=== PATIENT | female | born 1950 | race Caucasian/White ===

== ENCOUNTER → 2017-09-13 | Outpatient (CLI) | payer MEDICARE, OTHER ==
[~2017-09-13] MED LIST: HYDACE5 PO
== END | disposition home or self-care (01) ==
LOC: LAB SHORT 14:35 → LAB 14:35
DX: R30.0 Dysuria (principal)
CPT/HCPCS: 87086

== ENCOUNTER → 2018-09-28 | Outpatient (CLI) | payer MEDICARE, OTHER ==
[2018-09-28 14:32] LABS: Source, Urine Clean Catch
[2018-09-28 17:01] LABS: Bilirubin, Urine Neg (Neg); Blood, Urine Neg (Neg); Glucose Qualitative, Urine Neg (Neg); Ketones, Urine Neg (Neg); Leukocyte Esterase, Urine 2+ (Neg); Nitrite, Urine Neg (Neg); Protein, Urine Neg (Neg); Specific Gravity, Urine 1.015 (1.003-1.022); Urobilinogen, Urine NORM (Normal)
[2018-09-28 17:13] LABS: Appearance, Urine Clear (Clear); Color, Urine Yellow (P-Yellow)
[2018-09-28 17:15] LABS: Red Blood Cells, Urine 0-2 /hpf (0-2)
[2018-09-28 17:16] LABS: Bacteria Few /hpf; Squamous Epithelial Cells Few /hpf (Few); Yeast/Fungi Urine Rare /hpf
== END | disposition home or self-care (01) ==
LOC: LAB SHORT 14:23 → LAB 14:23
PROVIDERS: Family Medicine
DX: R30.0 Dysuria (principal)
CPT/HCPCS: 81001; 87086

== ENCOUNTER 2021-11-13 09:25 | Observation (INO) | payer MEDICARE, OTHER ==
[~2021-11-13] VITALS: Ht 149.9 cm; Wt 51.7 kg
[~2021-11-13 09:25] MED LIST changes: +ALBU90OI INH; +AMLO5 PO; +ATOR10 PO; +AZIT250 PO; +DEXL60CA3; +DOXA4 PO; +DULO30 PO; +EUTHYROX175 MCG PO; +FLUT.05NI; +FLUT1DIS8 INH; +HYDCHL25 PO; +MONT10T PO; +PRED20 PO; +SERT100 PO; +TIOT18 INH
[2021-11-13 14:22] LABS: Source, Urine Foley catheter
[2021-11-13 14:29] LABS: Appearance, Urine Clear (Clear); Bilirubin, Urine Neg (Neg); Blood, Urine Neg (Neg); Glucose Qualitative, Urine Neg (Neg); Ketones, Urine Neg (Neg); Leukocyte Esterase, Urine Neg (Neg); Nitrite, Urine Neg (Neg); Protein, Urine Neg (Neg); Specific Gravity, Urine 1.015 (1.003-1.022); Urobilinogen, Urine NORM (Normal)
[2021-11-13 14:38] LABS: Color, Urine Pale Yellow (P-Yellow)
--- NOTE | 2021-11-13 23:21 | NUR ---
Patient admitted for pelvic fx, very painful with movement. SOB with movement, patient on 5L oxygen to maintain saturations. Patient reports drinking 4oz of tequila daily, reports patient consumes an excessive amount of tequila daily & smokes half a pack of cigarettes. Patient reports her last drink was last night, when she fell. CIWA ordered, patient scoring 2-3. Patient painful with movement, arguello in place, draining to gravity. Bilat pedal pulses palpable, extremties warm, capillary refill <3.
[2021-11-14 09:36] LABS: BASOPHILS ABSOLUTE AUTO 0.06 K/mm3 (0.00-0.23); BASOPHILS PERCENT AUTO 0 % (0-2); EOSINOPHILS ABSOLUTE AUTO 0.05 K/mm3 (0.00-0.68); EOSINOPHILS PERCENT AUTO 0 % (0-6); Hematocrit 38.6 % (33.0-51.0); Hemoglobin 12.1 g/dL (11.5-16.0); IMMATURE GRAN ABSOLUTE AUTO 0.06 K/mm3 (0.00-0.10); IMMATURE GRAN PERCENT AUTO 0 % (0-1); LYMPHOCYTES ABSOLUTE AUTO 0.56 K/mm3 (0.84-5.20); LYMPHOCYTES PERCENT AUTO 4 % (21-46); MONOCYTES PERCENT AUTO 12 % (4-13); Mean Corpuscular HGB 31.3 pg (26.0-34.0); Mean Corpuscular HGB Conc 31.3 g/dL (31.5-36.5); Mean Corpuscular Volume 100 fL (80-100); Mean Platelet Volume 9.7 fL (9.1-12.4); NEUTROPHILS ABSOLUTE AUTO 11.73 K/mm3 (1.96-9.15); NEUTROPHILS PERCENT AUTO 83 % (41-73); Platelet Count 232 K/mm3 (150-400); RDW Coefficient Variation 13.2 % (11.7-14.2); RDW Standard Deviation 49.2 fL (35.1-46.3); Red Blood Cell Count 3.86 M/mm3 (3.80-5.20); White Blood Cell Count 14.16 K/mm3 (4.00-11.30)
[2021-11-14 09:48] LABS: Albumin, Blood 3.1 g/dL (3.4-5.0); Albumin/Globulin Ratio 0.8 (0.8-1.8); Bilirubin, Total 0.6 mg/dL (0.1-1.0); Bun/Creatinine Ratio 16.8 (12.0-20.0); Calcium, Blood 9.2 mg/dL (8.5-10.1); Creatinine, Blood 0.6 mg/dL (0.40-1.00); Globulin, Blood 4.1 g/dL (2.2-4.0); Potassium, Blood 3.6 mmol/L (3.5-5.5); Total Protein, Blood 7.2 g/dL (6.4-8.2)
--- NOTE | 2021-11-14 11:48 | NUR ---
MS LUNA IS ALERT, ORIENTATED X4. PAIN TO LEFT PELVIS 1/10 AT REST. CASE DISCUSSED WITH DR VÁZQUEZ THIS MORNING - PT IS NPO WITH MINIMAL FLUIDS PO LAST EVENING AFTER BEING NPO IN THE ER YESTERDAY. NOT ON IVF. I WAS TOLD ORTHO HAD BEEN CONSULTED, BUT HAVEN'T HEARD FROM ORTHO PHYSICIAN SO A CALL WAS PUT IN TO THE ANSWERING SERVICE AT 1145. PT C/O FEELING CONGESTED, SAID SHE TAKES ALBUTEROL NEBS AT HOME WHEN THIS HAPPENS, DR HICKEY NOTIFIED. DR HICKEY HAS A LIST OF PT MEDICATIONS THAT SHE'S ON AT HOME. ENHANCED ISOLATION PRECAUTIONS WERE IN PT'S CHART, QUESTIONED DR HICKEY AND GOT THE OK TO REMOVED THE ENHANCED ISOLATION STATUS. PT SAID SHE HAS NOT HAD RECENT COVID. CIWA SCORE AT 8AM WAS 1. SEIZURE PADS ON THE BED. AT BEDSIDE. BED LOW, CALL LIGHT IN REACH. PT TURNED SLIGHTLY OFF OF HER LEFT SIDE TO RELIEVE PRESSURE, PROPPED WITH PILLOWS.
[2021-11-14] MEDS ORDERED: AMLO10 PO (14:14)
[2021-11-14] MEDS ORDERED: ASCO500 PO ×2 (14:15→14:16)
[2021-11-14] MEDS ORDERED: ATOR10 PO (14:17)
[2021-11-14] MEDS ORDERED: Vitamin B-12 PO (14:19)
[2021-11-14] MEDS ORDERED: CYMBALTA30 M1 PO (14:20)
[2021-11-14] MEDS ORDERED: Flonase 0.05% Nasal (14:22)
[2021-11-14] MEDS ORDERED: FLUT1DIS8 INH (14:23)
[2021-11-14] MEDS ORDERED: HYDCHL50 PO (14:24)
[2021-11-14] MEDS ORDERED: LEVO T PO (14:26)
[2021-11-14] MEDS ORDERED: MONT10T PO (14:27)
[2021-11-14] MEDS ORDERED: SERT100 PO (14:28)
[2021-11-14] MEDS ORDERED: TIOT18 INH (14:29)
--- NOTE | 2021-11-14 16:09 | NUR ---
SHIFT SUMMARY ORTHO DR VICENTE CAME TO ASSESS PT. HE GAVE HER A PRESCRIPTION FOR WHEELCHAIR FOR HOME. SAID SHE CAN BE WEIGHT BEARING TOLERATED. PHYSICAL THERAPY CONSULT REQUESTED. CAN EAT AND DRINK. I CALLED DR HICKEY AND SHE SAID PT CAN HAVE A CARDIAC DIET. ORDER ENTERED FOR TRAY NOW. SNACK AND DRINK GIVEN TO PT. DR VICENTE SAID PT NEEDS TO F/U WITH ORTHO IN 6 WEEKS AN OUT PATIENT. GIVEN MORPHINE 2MG FOR 10/10 PAIN, REDUCED TO 5/10. MOIST NON-PRODUCTIVE COUGH ON 5L NC, FEELS CONGESTED. ON CONTINUOUS PULSE OX. FAMILY AT BEDSIDE. BED LOW, CALL LIGHT IN REACH.
--- NOTE | 2021-11-15 06:40 | NUR ---
SHIFT SUMMARY: PATIENT REPORTS DISCOMFORT WITH REPOSITIONING. REFUSES NEED OF PAIN MEDICATION. VSS, HORVATH PATENT FOR A CLEAR YELLOW URINE. PATIENT SLEPT WELL THROUGH THE SHIFT WITH CPAP ON. SCORES A ZERO ON WITHDRAWL ASSESSMENT.
--- NOTE | 2021-11-15 11:11 | NUR ---
AM NOTE MS LUNA STOOD WITH PT AND TRANSFERED TO THE RECLINER, HAS BEEN SITTING OUT THIS MORNING. SHE WAS PRE-MEDICATED WITH 1MG MORPHINE PRIOR TO PT. DR GARDUNO CAME THIS MORNING AND SAID HE WILL PLACE ORAL ANALGESIA ORDER. HE PAIN IS WELL CONTROLLED AT REST, PAINFUL TO MOVE. HORVATH CATHETER REMOVED AT 1100HRS. CIWA 0 THIS AM. FAMILY AT BEDSIDE.
--- NOTE | 2021-11-15 16:30 | NUR ---
SHIFT SUMMARY MS ULNA SAT UP IN THE CHAIR FOR A FEW HOURS TODAY, TRANSFERED BACK TO BED WITH GAIT BELT, WALKER AND ONE PERSON ASSIST. MOIST STRONG NON-PRODUCTIVE COUGH ON 5-6L NC AND CONT PULSE OX. NOT SOB TRANSFERING TO BED. HORVATH REMOVED AT 1100HRS. ENCOURAGED TO DRINK FLUIDS. SHE HAS VOIDED JUST 100CC SINCE HORVATH REMOVAL. FAMILY TO BEDSIDE. PLAN FOR SNF PLACEMENT AND PT/FAMILY REQUESTING [facility]. PAIN CONTROLLED, THIS AFTERNOON SHE HAS TAKEN NORCO WHICH BROUGHT PAIN TO 3/10. BED LOW, CALL LIGHT IN REACH.
[2021-11-15] MEDS ORDERED: Oxybutynin Chlo15 MG PO (21:21)
--- NOTE | 2021-11-15 22:07 | NUR ---
2054 PT LYING IN BED, REPORTS PAIN IN GLUTEAL AREA, GOT NORCO, WILL EVAL FOR EFFECT. REPORTS SOB THAT INCREASES WITH EXERTION, ON 6L O2 NC AT 97%. NON PRODUCTIVE COUGH. NO OTHER APPARENT SIGNS OF DISTRESS. CALL LIGHT IS IN REACH.
--- NOTE | 2021-11-15 23:40 | NUR ---
PT LYING IN BED, EYES CLOSED, APPEARS TO BE RESTING. BREATHING IS EVEN, UNLABORED. CPAP AND CONT BIOX ON. NO APPARENT SIGNS OF DISTRESS. CALL LIGHT IS IN REACH.
--- NOTE | 2021-11-16 02:45 | NUR ---
PT LYING IN BED, AWAKE, ROOFER HELPER JUST FINISHED VS. PT DENIES NEED FOR ANYTHING AT THIS TIME. NO APPARENT SIGNS OF DISTRESS. CPAP IS ON. CALL LIGHT IS IN REACH.
--- NOTE | 2021-11-16 03:48 | NUR ---
PT LYING IN BED, EYES CLOSED, APPEARS TO BE RESTING. BREATHING IS EVEN, UNLABORED. NO APPARENT SIGNS OF DISTRESS. CPAP IS ON. CALL LIGHT IS IN REACH.
--- NOTE | 2021-11-16 03:48 | NUR ---
PT IS AAO X 4, REPORTS SOB THAT INCREASES WITH EXERTION. ON 6L O2 NC AT 97%. HAS A NON PRODUCTIVE COUGH. REPORTS PAIN IN BOTTOM, GOT NORCO.
[2021-11-16 05:54] LABS: BASOPHILS ABSOLUTE AUTO 0.04 K/mm3 (0.00-0.23); BASOPHILS PERCENT AUTO 0 % (0-2); EOSINOPHILS ABSOLUTE AUTO 0.16 K/mm3 (0.00-0.68); EOSINOPHILS PERCENT AUTO 2 % (0-6); Hematocrit 37.5 % (33.0-51.0); Hemoglobin 11.9 g/dL (11.5-16.0); IMMATURE GRAN ABSOLUTE AUTO 0.04 K/mm3 (0.00-0.10); IMMATURE GRAN PERCENT AUTO 0 % (0-1); LYMPHOCYTES ABSOLUTE AUTO 0.76 K/mm3 (0.84-5.20); LYMPHOCYTES PERCENT AUTO 7 % (21-46); MONOCYTES ABSOLUTE AUTO 1.66 K/mm3 (0.16-1.47); MONOCYTES PERCENT AUTO 16 % (4-13); Mean Corpuscular HGB 31.2 pg (26.0-34.0); Mean Corpuscular HGB Conc 31.7 g/dL (31.5-36.5); Mean Corpuscular Volume 98 fL (80-100); Mean Platelet Volume 10.3 fL (9.1-12.4); NEUTROPHILS ABSOLUTE AUTO 7.96 K/mm3 (1.96-9.15); NEUTROPHILS PERCENT AUTO 75 % (41-73); Platelet Count 263 K/mm3 (150-400); RDW Coefficient Variation 12.8 % (11.7-14.2); RDW Standard Deviation 46.3 fL (35.1-46.3); Red Blood Cell Count 3.81 M/mm3 (3.80-5.20); White Blood Cell Count 10.62 K/mm3 (4.00-11.30)
--- NOTE | 2021-11-16 06:11 | NUR ---
PT REQUESTED AND RECIEVED PAIN MEDS, WILL EVAL FOR EFFECT. PUREWICK PLACED FOR PT COMFORT R/T PELVIC FX'S. NO OTHER APPARENT SIGNS OF DISTRESS. CALL LIGHT IS IN REACH. NO OTHER CHANGES THIS SHIFT.
[2021-11-16 06:17] LABS: Bun/Creatinine Ratio 26.1 (12.0-20.0); Calcium, Blood 9.5 mg/dL (8.5-10.1); Creatinine, Blood 0.5 mg/dL (0.40-1.00); Potassium, Blood 3.3 mmol/L (3.5-5.5)
--- NOTE | 2021-11-16 18:41 | NUR ---
SHIFT SUMMARY- PT ALERT AND ORIENTED X3. SHE HAS HAD NO SIGNS OF ALCOHOL WITHDRAWL T/O THE SHIFT TODAY. SHE HAS BEEN PLEASENT AND REQUESTED ASSISTANCE WHEN SHE NEEDED IT. PT WAS ABLE TO WORK WITH THERAPY TODAY. PT HAD A PURWICK PLACED THIS MORNING, THAT BECAME DISLODGED, ATTEND AND LINNENS CHANGED. STAFF ATTEMPTED TO GET PT INTO THE SHOWER BUT VISITOR ARRIVED THE PT WAS HEADED FOR THE BATHROOM. WILL PASS ON TO NIGHT RN THAT THE PT STILL NEEDS A SHOWER. PT CURRENTLY SITTING IN A CHAIR WORKING ON THE LAST OF HER DINNER TRAY. CALL LIGHT IN REACH NO S&S OF DISTRESS NOTED. WILL CTM AND PASS ON IN BEDSIDE REPORT TO NIGHT RN.
--- NOTE | 2021-11-16 19:30 | NUR ---
RECEIVED BEDSIDE REPORT FROM DAYSAGGIE RN. A/O. PLEASANT AND COOPERATIVE. WILL CONTINUE TO PROVIDE CARE T/O SHIFT. CALL LT IN REACH.
--- NOTE | 2021-11-16 20:00 | NUR ---
PRN PAIN MED GIVEN FOR L HIP PAIN. PT CURRENTLY ON 6L VIA NC. WILL WEAR HOME CPAP AT BEDTIME. CONT BIOX AND TELE IN PLACE. WEIGHT BEARING TO LEFT LEG TOLERATED. MEDS WHOLE WITH WATER. NO OTHER NEEDS. CALL LT IN REACH.
--- NOTE | 2021-11-16 22:14 | NUR ---
NOTIFIED RT PT'S SATS PER CONT BIOX WAS 88% ON TRILOGY WITH A 5L BLEED IN. OKAY TO TITRATE TO 6L BLEED IN PER RT. WILL CONTINUE TO PROVIDE CARE.
--- NOTE | 2021-11-17 00:16 | NUR ---
PT RESTING QUIETLY. 93% ON TRILOGY WITH 6L BLEED IN.
--- NOTE | 2021-11-17 02:00 | NUR ---
PT RESTING QUIETLY. CPAP IN PLACE. 91% SATS. CALL LT IN REACH.
--- NOTE | 2021-11-17 03:39 | NUR ---
SHIFT SUMMARY: ON 6L VIA NC WHILE AWAKE. ENDED WITH A 6L BLEED IN TO CPAP WITH SATS OF 93%. BLLED IN TITRATED FROM 4 TO 6L AT END OF SHIFT. PER RT RECOMMENDATION OKAY TO TITRATE OXYGEN IN CPAP TO 6L TO KEEP SATS IN THE LOW 90'S. MEDICATE ONCE FOR LEFT HIP PAIN, PT RESTED WELL. WEIGHT BEARING TO LEFT LEG TOLERATED. WILL CONTINUE TO PROVIDE CARE UNTIL SHIFT REPORT.
--- NOTE | 2021-11-17 04:32 | NUR ---
PT CONTINUES TO REST QUIETLY. CPAP IN PLACE. CONT BIOX 93%. CALL LT IN REACH.
[2021-11-17 05:45] LABS: Bun/Creatinine Ratio 21.8 (12.0-20.0); Calcium, Blood 9.5 mg/dL (8.5-10.1); Creatinine, Blood 0.46 mg/dL (0.40-1.00); Potassium, Blood 3.7 mmol/L (3.5-5.5)
--- NOTE | 2021-11-17 05:58 | NUR ---
AM MED GIVEN. PT CONTINUES TO WEAR CPAP. NO OTHER NEEDS. CALL LT IN REACH.
[2021-11-17] MEDS ORDERED: Norco 5-325 Ta1 EACH PO (11:13)
[2021-11-17] MEDS ORDERED: MULVITA PO (11:13)
[2021-11-17] MEDS ORDERED: B-1100 M1 PO (11:13)
[2021-11-17] MEDS ORDERED: ACET325 PO (11:14)
[2021-11-17 11:30] LABS: Influenza A, PCR NEGATIVE (NEGATIVE); Influenza B, PCR NEGATIVE (NEGATIVE); Resp Syncytial Virus, PCR NEGATIVE (NEGATIVE); SARS-Cov-2 (COVID-19) PCR, MMC NEGATIVE (NEGATIVE)
--- NOTE | 2021-11-17 13:12 | NUR ---
DISCHARGE SUMMARY PATIENT IS ALERT AND ORIENTED. PATIENT IS BEING [facility] TO [facility]. PATIENT HAS BEEN TRANSPORTED BY [facility]. PATIENT HAS NOT HAD ANY ACUTE EVENTS THIS SHIFT. VITAL SIGNS REVIEWED. THIS RN CALLED AND GAVE REPORT TO ONCOMING RN AT [facility].
== END 2021-11-17 13:03 ==
LOC: ER 09:25 → MEDS 16:17 → ER 16:17 → MEDS 16:17
PROVIDERS: Family Medicine; ADMIT Internal Medicine
DX: S32.512A Fracture of superior rim of left pubis, initial encounter for closed fracture (principal); S32.592A Other specified fracture of left pubis, initial encounter for closed fracture; W19.XXXA Unspecified fall, initial encounter; E87.6 Hypokalemia; F10.10 Alcohol abuse, uncomplicated; J96.11 Chronic respiratory failure with hypoxia; G47.33 Obstructive sleep apnea (adult) (pediatric); I10 Essential (primary) hypertension; J43.9 Emphysema, unspecified; E03.9 Hypothyroidism, unspecified; Z88.2 Allergy status to sulfonamides; Z88.8 Allergy status to other drugs, medicaments and biological substances; Z79.899 Other long term (current) drug therapy; Z20.822 Contact with and (suspected) exposure to COVID-19
CPT/HCPCS: 0241U; 36415; 51702; 73502; 73700; 80048; 80053; 81003; 85025; 94640; 94660; 94664; 94762; 96372; 96374-59; 97110; 97116-CQ; 97161; 97530-CQ; 99285-25; A9270; G0378; J1650; J2270; J2405; J3411; J7050

== ENCOUNTER 2022-05-14 10:53 | Inpatient (IN) | payer MEDICARE, OTHER ==
[~2022-05-14] VITALS: Ht 144.8 cm; Wt 52.3 kg
[~2022-05-14 10:53] MED LIST changes: +ACET325 PO; +AMLO10 PO; +ASCO500 PO; +B-1100 M1 PO; +CYMBALTA30 M1 PO; +Flonase 0.05% Nasal; +HYDCHL50 PO; +LEVO T PO; +MULVITA PO; +Norco 5-325 Ta1 EACH PO; +Oxybutynin Chlo15 MG PO; +Vitamin B-12 PO
[2022-05-14 11:28] LABS: BASOPHILS ABSOLUTE AUTO 0.04 K/mm3 (0.00-0.23); BASOPHILS PERCENT AUTO 0 % (0-2); EOSINOPHILS ABSOLUTE AUTO 0.04 K/mm3 (0.00-0.68); EOSINOPHILS PERCENT AUTO 0 % (0-6); Hematocrit 35.1 % (33.0-51.0); Hemoglobin 11.4 g/dL (11.5-16.0); IMMATURE GRAN ABSOLUTE AUTO 0.06 K/mm3 (0.00-0.10); IMMATURE GRAN PERCENT AUTO 0 % (0-1); LYMPHOCYTES ABSOLUTE AUTO 0.45 K/mm3 (0.84-5.20); LYMPHOCYTES PERCENT AUTO 3 % (21-46); MONOCYTES ABSOLUTE AUTO 0.68 K/mm3 (0.16-1.47); MONOCYTES PERCENT AUTO 5 % (4-13); Mean Corpuscular HGB 30.7 pg (26.0-34.0); Mean Corpuscular HGB Conc 32.5 g/dL (31.5-36.5); Mean Corpuscular Volume 95 fL (80-100); Mean Platelet Volume 9.2 fL (9.1-12.4); NEUTROPHILS ABSOLUTE AUTO 12.69 K/mm3 (1.96-9.15); NEUTROPHILS PERCENT AUTO 91 % (41-73); Platelet Count 311 K/mm3 (150-400); RDW Coefficient Variation 13.2 % (11.7-14.2); RDW Standard Deviation 45.8 fL (35.1-46.3); Red Blood Cell Count 3.71 M/mm3 (3.80-5.20); White Blood Cell Count 13.96 K/mm3 (4.00-11.30)
[2022-05-14 11:44] LABS: Albumin/Globulin Ratio 0.7 (0.8-1.8); Bilirubin, Total 0.6 mg/dL (0.1-1.0); Bun/Creatinine Ratio 15.9 (12.0-20.0); Calcium, Blood 9.2 mg/dL (8.5-10.1); Creatinine, Blood 0.44 mg/dL (0.40-1.00); Globulin, Blood 4.5 g/dL (2.2-4.0); Potassium, Blood 4.5 mmol/L (3.5-5.5); Total Protein, Blood 7.5 g/dL (6.4-8.2)
[2022-05-14 13:09] LABS: Influenza A, PCR NEGATIVE (NEGATIVE); Influenza B, PCR NEGATIVE (NEGATIVE); Resp Syncytial Virus, PCR NEGATIVE (NEGATIVE); SARS-Cov-2 (COVID-19) PCR, MMC NEGATIVE (NEGATIVE)
[2022-05-14 14:35] LABS: Base Excess Venous 4.9 mmol/L; Bicarbonate Venous 27.8 mmol/L (24.0-30.0); pH Blood Venous 7.35 (7.34-7.37)
--- NOTE | 2022-05-14 19:10 | NUR ---
PT ALERT NO S/S OF ACUTE DISTRESS, SAFETY MEASURES IN PLACE REPORT GIVEN TO ON COMING NURSE.
[2022-05-15 05:28] LABS: BASOPHILS ABSOLUTE AUTO 0.01 K/mm3 (0.00-0.23); BASOPHILS PERCENT AUTO 0 % (0-2); EOSINOPHILS PERCENT AUTO 0 % (0-6); Hematocrit 34.4 % (33.0-51.0); Hemoglobin 11.3 g/dL (11.5-16.0); IMMATURE GRAN ABSOLUTE AUTO 0.08 K/mm3 (0.00-0.10); IMMATURE GRAN PERCENT AUTO 1 % (0-1); LYMPHOCYTES ABSOLUTE AUTO 0.52 K/mm3 (0.84-5.20); LYMPHOCYTES PERCENT AUTO 6 % (21-46); MONOCYTES ABSOLUTE AUTO 0.43 K/mm3 (0.16-1.47); MONOCYTES PERCENT AUTO 5 % (4-13); Mean Corpuscular HGB 30.5 pg (26.0-34.0); Mean Corpuscular HGB Conc 32.8 g/dL (31.5-36.5); Mean Corpuscular Volume 93 fL (80-100); Mean Platelet Volume 9.6 fL (9.1-12.4); NEUTROPHILS ABSOLUTE AUTO 8.26 K/mm3 (1.96-9.15); NEUTROPHILS PERCENT AUTO 89 % (41-73); Platelet Count 347 K/mm3 (150-400); RDW Coefficient Variation 12.8 % (11.7-14.2); RDW Standard Deviation 43.7 fL (35.1-46.3)
--- NOTE | 2022-05-15 06:04 | NUR ---
PT IS A&O4, UP SB TO BR, 5L NC AT BASELINE, CPAP AT NIGHT, NO COMPLAINTS OF PAIN OR DISCOMFORT OR ACUTE OVERNIGHT EVENTS CONTINUE POC
[2022-05-15 06:06] LABS: Bun/Creatinine Ratio 29.2 (12.0-20.0); Calcium, Blood 9.4 mg/dL (8.5-10.1); Creatinine, Blood 0.65 mg/dL (0.40-1.00); Potassium, Blood 4.2 mmol/L (3.5-5.5)
--- NOTE | 2022-05-15 19:09 | NUR ---
PT ALERT NO S/S OF ACUTE DISTRESS, SAFETY MEASURES IN PLACE. REPORT GIVEN TO ON COMING NURSE.
[2022-05-16 05:44] LABS: Bun/Creatinine Ratio 41.9 (12.0-20.0); Calcium, Blood 9.9 mg/dL (8.5-10.1); Creatinine, Blood 0.53 mg/dL (0.40-1.00); Potassium, Blood 4.2 mmol/L (3.5-5.5); Thyroxine (T4) 8.1 ug/dL (4.8-13.9)
[2022-05-17 06:12] LABS: Bun/Creatinine Ratio 34.3 (12.0-20.0); Calcium, Blood 9.6 mg/dL (8.5-10.1); Creatinine, Blood 0.61 mg/dL (0.40-1.00); Potassium, Blood 4.2 mmol/L (3.5-5.5)
--- NOTE | 2022-05-17 06:35 | NUR ---
PT IS A&O4, SB WITH WALKER TO THE BR, 5L NC AT BASELINE, USES CPAP AT NIGHT, VSS, NO COMPLAINTS OF PAIN OR DISCOMFORT THIS SHIFT OR ACUTE OVERNIGHT EVENTS CONTINUE POC
[2022-05-18] MEDS ORDERED: OMEP20ER PO (19:53)
[2022-05-19 06:22] LABS: BASOPHILS ABSOLUTE AUTO 0.02 K/mm3 (0.00-0.23); BASOPHILS PERCENT AUTO 0 % (0-2); EOSINOPHILS ABSOLUTE AUTO 0.13 K/mm3 (0.00-0.68); EOSINOPHILS PERCENT AUTO 1 % (0-6); Hematocrit 35.5 % (33.0-51.0); Hemoglobin 11.4 g/dL (11.5-16.0); IMMATURE GRAN ABSOLUTE AUTO 0.15 K/mm3 (0.00-0.10); IMMATURE GRAN PERCENT AUTO 1 % (0-1); LYMPHOCYTES ABSOLUTE AUTO 1.79 K/mm3 (0.84-5.20); LYMPHOCYTES PERCENT AUTO 12 % (21-46); MONOCYTES ABSOLUTE AUTO 1.61 K/mm3 (0.16-1.47); MONOCYTES PERCENT AUTO 11 % (4-13); Mean Corpuscular HGB 30.6 pg (26.0-34.0); Mean Corpuscular HGB Conc 32.1 g/dL (31.5-36.5); Mean Corpuscular Volume 95 fL (80-100); Mean Platelet Volume 9.2 fL (9.1-12.4); NEUTROPHILS ABSOLUTE AUTO 10.82 K/mm3 (1.96-9.15); NEUTROPHILS PERCENT AUTO 75 % (41-73); Platelet Count 482 K/mm3 (150-400); RDW Coefficient Variation 13.3 % (11.7-14.2); RDW Standard Deviation 46.5 fL (35.1-46.3); Red Blood Cell Count 3.73 M/mm3 (3.80-5.20); White Blood Cell Count 14.52 K/mm3 (4.00-11.30)
--- NOTE | 2022-05-19 06:26 | NUR ---
PT IS A&O4, SB WITH WALKER TO THE BR, 5LNC AT BASELINE, CPAP AT NIGHT, VSS, NO COMPLAINTS OF PAIN OR DISCOMFORT THIS SHIFT, CONTINUE POC
[2022-05-19 06:42] LABS: Bun/Creatinine Ratio 30.9 (12.0-20.0); Calcium, Blood 9.6 mg/dL (8.5-10.1); Creatinine, Blood 0.65 mg/dL (0.40-1.00)
[2022-05-19] MEDS ORDERED: DILT120 PO (11:32)
[2022-05-19] MEDS ORDERED: FURO40 PO (11:33)
[2022-05-19] MEDS ORDERED: PRED20 PO (11:34)
[2022-05-19] MEDS ORDERED: POTA10T PO (11:40)
== END 2022-05-19 12:30 | disposition home health service (06) | DRG 291 ==
LOC: ER 10:53 → MEDS 13:35
PROVIDERS: Emergency Medicine; Internal Medicine; ADMIT Family Medicine
PROC: 5A09357 Assistance with Respiratory Ventilation, Less than 24 Consecutive Hours, Continuous Positive Airway Pressure (ICD-10-PCS; principal; 2022-05-14)
DX: I11.0 Hypertensive heart disease with heart failure (principal); J96.21 Acute and chronic respiratory failure with hypoxia; J96.22 Acute and chronic respiratory failure with hypercapnia; E87.1 Hypo-osmolality and hyponatremia; F10.20 Alcohol dependence, uncomplicated; I50.9 Heart failure, unspecified; G47.33 Obstructive sleep apnea (adult) (pediatric); D64.9 Anemia, unspecified; D72.829 Elevated white blood cell count, unspecified; J43.9 Emphysema, unspecified; I27.20 Pulmonary hypertension, unspecified; E03.9 Hypothyroidism, unspecified; Z20.822 Contact with and (suspected) exposure to COVID-19; Z88.1 Allergy status to other antibiotic agents; Z88.2 Allergy status to sulfonamides; Z99.81 Dependence on supplemental oxygen; Z88.8 Allergy status to other drugs, medicaments and biological substances; Z87.891 Personal history of nicotine dependence; Z79.899 Other long term (current) drug therapy; Z79.52 Long term (current) use of systemic steroids; Z79.51 Long term (current) use of inhaled steroids; Z79.02 Long term (current) use of antithrombotics/antiplatelets; Z79.891 Long term (current) use of opiate analgesic; Z71.41 Alcohol abuse counseling and surveillance of alcoholic; Z98.890 Other specified postprocedural states
CPT/HCPCS: 0241U; 36415; 71045; 80048; 80053; 82803; 83880; 84436; 84484; 85025; 93005; 93010; 93306; 94640; 94644; 94660; 94664; 94760; 94761; 94762; 96374; 96375; 97110; 97112-CQ; 97161; 99285-25; A9270; J1650; J1940; J2930; J7512

== ENCOUNTER 2022-06-08 15:33 | Emergency (ER) | payer MEDICARE, OTHER ==
[~2022-06-08] VITALS: Ht 144.8 cm; Wt 51.3 kg
[~2022-06-08 15:33] MED LIST changes: +DILT120 PO; +FURO40 PO; +OMEP20ER PO; +POTA10T PO
[2022-06-08] MEDS ORDERED: CLOBETASOL EMOL15 G1 EXT (17:23)
== END 2022-06-08 17:34 | disposition home or self-care (01) ==
LOC: ER 15:33
DX: L27.0 Generalized skin eruption due to drugs and medicaments taken internally (principal); T46.1X5A Adverse effect of calcium-channel blockers, initial encounter; T44.3X5A Adverse effect of other parasympatholytics [anticholinergics and antimuscarinics] and spasmolytics, initial encounter; I10 Essential (primary) hypertension; E03.9 Hypothyroidism, unspecified; J44.9 Chronic obstructive pulmonary disease, unspecified; F17.210 Nicotine dependence, cigarettes, uncomplicated; Z88.1 Allergy status to other antibiotic agents; Z88.2 Allergy status to sulfonamides; Z88.8 Allergy status to other drugs, medicaments and biological substances; Z87.898 Personal history of other specified conditions; Z79.899 Other long term (current) drug therapy
CPT/HCPCS: 99282

== ENCOUNTER 2023-01-28 16:08 | Inpatient (IN) | payer MEDICARE, OTHER ==
[~2023-01-28] VITALS: Ht 144.8 cm; Wt 57.5 kg
[~2023-01-28 16:08] MED LIST changes: +CLOBETASOL EMOL15 G1 EXT
[2023-01-28 16:59] LABS: BASOPHILS ABSOLUTE AUTO 0.07 K/mm3 (0.00-0.23); BASOPHILS PERCENT AUTO 0 % (0-2); EOSINOPHILS ABSOLUTE AUTO 0.04 K/mm3 (0.00-0.68); EOSINOPHILS PERCENT AUTO 0 % (0-6); Hematocrit 33.4 % (33.0-51.0); Hemoglobin 10.9 g/dL (11.5-16.0); IMMATURE GRAN ABSOLUTE AUTO 0.09 K/mm3 (0.00-0.10); IMMATURE GRAN PERCENT AUTO 1 % (0-1); LYMPHOCYTES ABSOLUTE AUTO 0.87 K/mm3 (0.84-5.20); LYMPHOCYTES PERCENT AUTO 4 % (21-46); MONOCYTES ABSOLUTE AUTO 1.94 K/mm3 (0.16-1.47); MONOCYTES PERCENT AUTO 10 % (4-13); Mean Corpuscular HGB 32.2 pg (26.0-34.0); Mean Corpuscular HGB Conc 32.6 g/dL (31.5-36.5); Mean Corpuscular Volume 99 fL (80-100); Mean Platelet Volume 10.2 fL (9.1-12.4); NEUTROPHILS PERCENT AUTO 85 % (41-73); Platelet Count 287 K/mm3 (150-400); RDW Coefficient Variation 13.5 % (11.7-14.2); RDW Standard Deviation 48.6 fL (35.1-46.3); Red Blood Cell Count 3.39 M/mm3 (3.80-5.20); White Blood Cell Count 19.91 K/mm3 (4.00-11.30)
[2023-01-28 17:19] LABS: Albumin, Blood 3.5 g/dL (3.4-5.0); Albumin/Globulin Ratio 0.9 (0.8-1.8); Bilirubin, Total 0.7 mg/dL (0.1-1.0); Bun/Creatinine Ratio 23.3 (12.0-20.0); Calcium, Blood 8.9 mg/dL (8.5-10.1); Creatinine, Blood 0.73 mg/dL (0.40-1.00); Globulin, Blood 4.1 g/dL (2.2-4.0); Potassium, Blood 4.4 mmol/L (3.5-5.5); Total Protein, Blood 7.6 g/dL (6.4-8.2)
[2023-01-28 17:28] LABS: Base Excess Venous 6.7 mmol/L; Bicarbonate Venous 29.8 mmol/L (24.0-30.0); pH Blood Venous 7.46 (7.34-7.37)
[2023-01-28 17:33] LABS: Influenza A, PCR NEGATIVE (NEGATIVE); Influenza B, PCR NEGATIVE (NEGATIVE); Resp Syncytial Virus, PCR NEGATIVE (NEGATIVE); SARS-Cov-2 (COVID-19) PCR, MMC NEGATIVE (NEGATIVE)
[2023-01-28] MEDS ORDERED: MAGNESIUM OXID500 MG PO (17:51)
[2023-01-28] MEDS ORDERED: VITAMIN D325 MC3 PO (17:51)
[2023-01-28] MEDS ORDERED: AMLO10 PO (17:52)
[2023-01-28] MEDS ORDERED: CALCIUM PO (17:52)
[2023-01-28] MEDS ORDERED: LORA10ER PO (17:52)
[2023-01-28] MEDS ORDERED: DOXA1 PO (17:53)
[2023-01-28] MEDS ORDERED: VISBIOME 112.51 EACH PO (17:53)
[2023-01-28 20:23] LABS: Source, Urine Clean Catch
[2023-01-28 20:28] LABS: Bilirubin, Urine Neg (Neg); Blood, Urine Neg (Neg); Glucose Qualitative, Urine Neg (Neg); Ketones, Urine Neg (Neg); Leukocyte Esterase, Urine Neg (Neg); Nitrite, Urine Neg (Neg); Protein, Urine Neg (Neg); Specific Gravity, Urine 1.005 (1.003-1.022); Urobilinogen, Urine NORM (Normal)
[2023-01-28 20:30] LABS: Appearance, Urine Clear (Clear); Color, Urine Yellow (P-Yellow)
[2023-01-28 21:35] VITALS: BP 115/61
[2023-01-29 01:06] VITALS: BP 110/76
[2023-01-29 04:12] LABS: BASOPHILS ABSOLUTE AUTO 0.02 K/mm3 (0.00-0.23); BASOPHILS PERCENT AUTO 0 % (0-2); EOSINOPHILS PERCENT AUTO 0 % (0-6); Hematocrit 32.4 % (33.0-51.0); Hemoglobin 10.1 g/dL (11.5-16.0); IMMATURE GRAN PERCENT AUTO 1 % (0-1); LYMPHOCYTES ABSOLUTE AUTO 0.38 K/mm3 (0.84-5.20); LYMPHOCYTES PERCENT AUTO 2 % (21-46); MONOCYTES ABSOLUTE AUTO 0.34 K/mm3 (0.16-1.47); MONOCYTES PERCENT AUTO 2 % (4-13); Mean Corpuscular HGB 32.2 pg (26.0-34.0); Mean Corpuscular HGB Conc 31.2 g/dL (31.5-36.5); Mean Corpuscular Volume 103 fL (80-100); Mean Platelet Volume 10.5 fL (9.1-12.4); NEUTROPHILS ABSOLUTE AUTO 17.38 K/mm3 (1.96-9.15); NEUTROPHILS PERCENT AUTO 95 % (41-73); Platelet Count 243 K/mm3 (150-400); RDW Coefficient Variation 13.7 % (11.7-14.2); RDW Standard Deviation 52.4 fL (35.1-46.3); Red Blood Cell Count 3.14 M/mm3 (3.80-5.20); White Blood Cell Count 18.22 K/mm3 (4.00-11.30)
[2023-01-29 04:38] VITALS: BP 110/78
[2023-01-29 04:47] LABS: Calcium, Blood 8.4 mg/dL (8.5-10.1); Creatinine, Blood 0.79 mg/dL (0.40-1.00); Magnesium, Blood 2.8 mg/dL (1.6-2.4); Potassium, Blood 4.6 mmol/L (3.5-5.5)
--- NOTE | 2023-01-29 04:49 | NUR ---
PT ARRIVED TO [facility] VIA GURNEY FROM ED. PT ABLE TO STAND AND AMBULATE FROM GURNEY TO BED WITH MINIMAL ASSISTANCE. PT ORIENTED TO ROOM, CALL LIGHT AND UNIT ROUTINES. PT IS A&OX4, ABLE TO USE CALL LIGHT FOR NEEDS. O2 NEEDS HAVE REMAINED THE SAME SINCE ARRIVAL. PT IS ON 4-5L 02 AT HOME. PT STATES HER BREATHING IS FEELING BETTER AND HAS NO COMPLAINTS T/O THE NIGHT. CONTINUOUS SPO2 MONITORING AND TELE IN PLACE. VSS. WILL CONTINUE TO MONITOR AND GIVE REPORT TO DAY SHIFT RN.
[2023-01-29 08:15] VITALS: BP 135/82
[2023-01-29 12:00] VITALS: BP 138/82
[2023-01-29 16:00] VITALS: BP 134/87
--- NOTE | 2023-01-29 17:31 | NUR ---
PT HAS BEEN RESTING WELL IN THE BED T/O THE DAY, SHE HAS NOT REQUIRED ANY CHANGES IN O2 NEEDS. SHE ALERT AND ORIENTED TO PLACE, FAMILY, AND SITUATION. CONGESTED COUGH WHICH IS CHRONIC. GOOD APPETITE. SHE IS SBA TO BSC. VSS. NADN. NO RETRACTIONS OR NASAL FALRRING NOTED. SKW PWD AND INTACT. SHE REPORTS MILD IMPROVEMENT IN WORK OF BREATHING TODAY.
[2023-01-29 20:48] VITALS: BP 162/80
[2023-01-29 22:44] LABS: Adenovirus Not Detected (NOT DETECT); Bordetella pertussis Not Detected (NOT DETECT); Coronavirus 229E Not Detected (NOT DETECT); Coronavirus HKU1 Not Detected (NOT DETECT); Coronavirus NL63 Not Detected (NOT DETECT); Coronavirus OC43 Not Detected (NOT DETECT); Human Metapneumovirus Not Detected (NOT DETECT); Human Rhinovirus/Enterovirus Not Detected (NOT DETECT); Influenza A/2009-H1 Not Detected (NOT DETECT); Influenza A/H1 Not Detected (NOT DETECT); Influenza A/H3 Not Detected (NOT DETECT); Influenza B Not Detected (NOT DETECT); Parainfluenza Virus 1 Not Detected (NOT DETECT); Parainfluenza Virus 2 Not Detected (NOT DETECT); Parainfluenza Virus 3 Not Detected (NOT DETECT); Parainfluenza Virus 4 Not Detected (NOT DETECT); Respiratory Syncytial Virus Not Detected (NOT DETECT); SARS-Cov-2 (COVID-19), BioFire Not Detected (NOT DETECT)
[2023-01-29 22:45] LABS: Chlamydophila pneumoniae Not Detected (NOT DETECT); Mycoplasma pneumoniae Not Detected (NOT DETECT)
[2023-01-30 00:03] VITALS: BP 140/91
[2023-01-30 03:52] VITALS: BP 119/65
[2023-01-30 04:41] LABS: BASOPHILS ABSOLUTE AUTO 0.01 K/mm3 (0.00-0.23); BASOPHILS PERCENT AUTO 0 % (0-2); EOSINOPHILS PERCENT AUTO 0 % (0-6); Hematocrit 30.7 % (33.0-51.0); Hemoglobin 9.7 g/dL (11.5-16.0); IMMATURE GRAN ABSOLUTE AUTO 0.15 K/mm3 (0.00-0.10); IMMATURE GRAN PERCENT AUTO 1 % (0-1); LYMPHOCYTES ABSOLUTE AUTO 0.41 K/mm3 (0.84-5.20); LYMPHOCYTES PERCENT AUTO 2 % (21-46); MONOCYTES ABSOLUTE AUTO 0.97 K/mm3 (0.16-1.47); MONOCYTES PERCENT AUTO 5 % (4-13); Mean Corpuscular HGB Conc 31.6 g/dL (31.5-36.5); Mean Corpuscular Volume 101 fL (80-100); Mean Platelet Volume 10.5 fL (9.1-12.4); NEUTROPHILS ABSOLUTE AUTO 17.51 K/mm3 (1.96-9.15); NEUTROPHILS PERCENT AUTO 92 % (41-73); Platelet Count 246 K/mm3 (150-400); RDW Coefficient Variation 13.6 % (11.7-14.2); RDW Standard Deviation 50.8 fL (35.1-46.3); Red Blood Cell Count 3.03 M/mm3 (3.80-5.20); White Blood Cell Count 19.05 K/mm3 (4.00-11.30)
[2023-01-30 05:05] LABS: Calcium, Blood 8.9 mg/dL (8.5-10.1); Creatinine, Blood 0.92 mg/dL (0.40-1.00); Potassium, Blood 4.3 mmol/L (3.5-5.5)
--- NOTE | 2023-01-30 06:31 | NUR ---
NO ACUTE CHANGES T/O THE SHIFT. PT SLEEPING WITH HOME BIPAP IN PLACE. VSS. SEE ASSESSMENT DOCUMENTATION. PT HAS HAD NO COMPLAINTS T/O THE SHIFT. NO ACUTE NEEDS IDENTIFIED AT THIS TIME. CALL LIGHT IN REACH, PT ABLE TO USE FOR NEEDS. WILL CONTINUE TO MONITOR AND GIVE REPORT TO AM RN.
[2023-01-30 08:34] VITALS: BP 129/70
[2023-01-30 16:15] VITALS: BP 156/80
--- NOTE | 2023-01-30 17:39 | NUR ---
PT HAS BEEN RESTING WELL IN BED T/O THE DAY. SHE DOES DESTATURATE MORE TODAY WITH ACTIVITY THAN SHE DID YESTERDAY, SHE DOES RECOVER QUICKLY BUT O2 DOES NEED TO BE INCREASED FROM 5L TO 6L WHEN EATING AND AMBULATING. VSS. SHE IS ALERT AND ORIENTED TO SELF AND SIRUATION. HER WORK OF BREATHING DOES NOT SEEMED TO HAVE WORSENED. SHE HAS BEEN CHANGED TO MEDICAL STATUS TODAY. STEROID DOSE AND LASIX HAVE BEEN INCREASED TODAY. SKIN PWD AND INTACT, NO EDEMA NOTED. SHE HAS BEEN ABLE TO TALK IN FULL SENTENCES, EATING WITHOUT DISTRESS. NO NASAL FLARRING OR RETRACTIONS NOTED
[2023-01-30 19:47] VITALS: BP 142/84
[2023-01-31 04:20] VITALS: BP 144/83
[2023-01-31 04:34] LABS: BASOPHILS ABSOLUTE AUTO 0.02 K/mm3 (0.00-0.23); BASOPHILS PERCENT AUTO 0 % (0-2); EOSINOPHILS PERCENT AUTO 0 % (0-6); Hematocrit 30.9 % (33.0-51.0); Hemoglobin 9.9 g/dL (11.5-16.0); IMMATURE GRAN ABSOLUTE AUTO 0.24 K/mm3 (0.00-0.10); IMMATURE GRAN PERCENT AUTO 1 % (0-1); LYMPHOCYTES ABSOLUTE AUTO 0.46 K/mm3 (0.84-5.20); LYMPHOCYTES PERCENT AUTO 3 % (21-46); MONOCYTES ABSOLUTE AUTO 0.77 K/mm3 (0.16-1.47); MONOCYTES PERCENT AUTO 4 % (4-13); Mean Corpuscular Volume 100 fL (80-100); Mean Platelet Volume 10.3 fL (9.1-12.4); NEUTROPHILS ABSOLUTE AUTO 16.78 K/mm3 (1.96-9.15); NEUTROPHILS PERCENT AUTO 92 % (41-73); Platelet Count 287 K/mm3 (150-400); RDW Coefficient Variation 13.7 % (11.7-14.2); RDW Standard Deviation 50.2 fL (35.1-46.3); Red Blood Cell Count 3.09 M/mm3 (3.80-5.20); White Blood Cell Count 18.27 K/mm3 (4.00-11.30)
[2023-01-31 04:52] LABS: Bun/Creatinine Ratio 34.9 (12.0-20.0); Calcium, Blood 9.1 mg/dL (8.5-10.1); Creatinine, Blood 0.86 mg/dL (0.40-1.00); Potassium, Blood 3.8 mmol/L (3.5-5.5)
--- NOTE | 2023-01-31 06:43 | NUR ---
SHIFT SUMMARY A/Ox4 AND COOPERATIVE WITH CARE. ANSWER QUESTIONS APPROPRIATLEY AND ABLE TO MAKE HER NEEDS KNOWN. NO ACUTE EVENTS OVERNIGHT. PT REMAINS IN ST 100'S WITH NO C/O CP OR PRESSURE T/O THE NIGHT. SBP HAS BEEN STABLE RANGING 140'S. RESPIRATORY, MAINTAINS SPO2 90-94% ON 4-5L VIA NC. SOME TACHYPNEA NOTED WITH MODERATE EXERTION, BUT SPO2 REMAINED >90. PT WORE HER HOME TRIOLOGY T/O THE NIGHT WHEN SLEEPING. GI/ ABLE TO AMBULATE TO [facility] WITH 1 STAFF ASSIST. NO BM THIS SHIFT. POTENTIAL D/C THIS AM PER DAYSHIFT REPORT. ASSESSED PT FOR RISKS OF ANY IGNITION SOURCES WELL BEHAVIORS FOR INCREASED RISKS OF FIRE DANGER. PT EDUCATED ON COMMON SOURCES OF IGNITION WELL NEED TO KEEP A SAFE ENVIRONMENT. PT VOICED UNDERSTANDING. NO NEW ORDERS AT THIS TIME, WILL REPORT TO ONCOMING RN. SALIMA GRIFFIN OF THIS NOTE
--- NOTE | 2023-01-31 08:30 | NUR ---
AM ASSESSMENT: Pt sitting up at edge of bed working with physicial therapy. Tolerating well and able to ambulate with one person SBA and walker. BP and HR elevated, will treat per orders. LS very diminished throughout, on 5L oxygen per NC. Pt baseline O2 is 4-5L. Does become tachypnic with activity. BT positive. Pulses palp. Pt hopes to discharge home today. Denies other needs. Call light in reach. Will monitor.
[2023-01-31 08:35] VITALS: BP 157/84
[2023-01-31 11:14] VITALS: BP 148/78
[2023-01-31] MEDS ORDERED: PRED20 PO (11:33)
--- NOTE | 2023-01-31 15:03 | NUR ---
DISHCARGE : Pt and were given printed and written discharge instrcutions, verbalized understanding. Denies questions. IV removed, cath intact. Left via w/c. Stable at time of discharge.
== END 2023-01-31 14:01 | disposition home or self-care (01) | DRG 291 ==
LOC: ER 16:08 → PCU 16:09 → ER 21:30 → PCU 21:43
PROVIDERS: Family Medicine; Nurse Practitioner Acute Care; Student in an Organized Health Care Education/Training Program; ADMIT Internal Medicine
DX: I11.0 Hypertensive heart disease with heart failure (principal); I50.33 Acute on chronic diastolic (congestive) heart failure; J96.21 Acute and chronic respiratory failure with hypoxia; J44.1 Chronic obstructive pulmonary disease with (acute) exacerbation; R65.10 Systemic inflammatory response syndrome (SIRS) of non-infectious origin without acute organ dysfunction; Z23 Encounter for immunization; E03.9 Hypothyroidism, unspecified; G47.33 Obstructive sleep apnea (adult) (pediatric); F32.9 Major depressive disorder, single episode, unspecified; K21.9 Gastro-esophageal reflux disease without esophagitis; E78.5 Hyperlipidemia, unspecified; D64.9 Anemia, unspecified; F17.210 Nicotine dependence, cigarettes, uncomplicated; Z88.1 Allergy status to other antibiotic agents; Z88.2 Allergy status to sulfonamides; Z20.822 Contact with and (suspected) exposure to COVID-19; Z99.81 Dependence on supplemental oxygen; Z79.899 Other long term (current) drug therapy; Z79.890 Hormone replacement therapy; Z79.51 Long term (current) use of inhaled steroids
CPT/HCPCS: 0202U; 0241U; 36415; 71045; 80048; 80053; 81003; 82803; 83605; 83735; 83880; 84145; 85025; 93005; 93010; 94640; 94660; 94762; 96365; 96366; 96367; 96372; 96375; 96376; 97161; 99285-25; A9270; G0008; G0378; J0456; J1650; J1940; J1956; J2930; J3475; J7030; J7050; Q2036

== ENCOUNTER 2023-04-08 20:14 | Inpatient (IN) | payer MEDICARE, OTHER ==
[~2023-04-08] VITALS: Ht 144.8 cm; Wt 56.7 kg
[~2023-04-08 20:14] MED LIST changes: +CALCIUM PO; +DOXA1 PO; +LORA10ER PO; +MAGNESIUM OXID500 MG PO; +VISBIOME 112.51 EACH PO; +VITAMIN D325 MC3 PO
[2023-04-08 22:14] LABS: BASOPHILS ABSOLUTE AUTO 0.03 K/mm3 (0.00-0.23); BASOPHILS PERCENT AUTO 1 % (0-2); EOSINOPHILS ABSOLUTE AUTO 0.06 K/mm3 (0.00-0.68); EOSINOPHILS PERCENT AUTO 1 % (0-6); Hematocrit 18.8 % (33.0-51.0); IMMATURE GRAN ABSOLUTE AUTO 0.01 K/mm3 (0.00-0.10); IMMATURE GRAN PERCENT AUTO 0 % (0-1); LYMPHOCYTES ABSOLUTE AUTO 0.23 K/mm3 (0.84-5.20); LYMPHOCYTES PERCENT AUTO 4 % (21-46); MONOCYTES PERCENT AUTO 13 % (4-13); Mean Corpuscular HGB 31.9 pg (26.0-34.0); Mean Corpuscular HGB Conc 30.9 g/dL (31.5-36.5); Mean Corpuscular Volume 103 fL (80-100); Mean Platelet Volume 10.1 fL (9.1-12.4); NEUTROPHILS ABSOLUTE AUTO 4.25 K/mm3 (1.96-9.15); NEUTROPHILS PERCENT AUTO 80 % (41-73); Platelet Count 143 K/mm3 (150-400); RDW Coefficient Variation 14.5 % (11.7-14.2); RDW Standard Deviation 53.6 fL (35.1-46.3); Red Blood Cell Count 1.82 M/mm3 (3.80-5.20); White Blood Cell Count 5.28 K/mm3 (4.00-11.30)
[2023-04-08 22:18] LABS: Hemoglobin 5.8 g/dL (11.5-16.0)
[2023-04-08 22:29] LABS: Alanine Aminotransfer (ALT/SGP 8 U/L (12-78); Albumin, Blood 1.7 g/dL (3.4-5.0); Albumin/Globulin Ratio 0.9 (0.8-1.8); Alk Phos 55 U/L (50-136); Anion Gap 6 mmol/L (6-16); Aspartate Aminotrans (AST/SGOT 9 U/L (12-37); Bilirubin, Total 0.2 mg/dL (0.1-1.0); Blood Urea Nitrogen 7 mg/dL (8-24); Bun/Creatinine Ratio 16.8 (12.0-20.0); CO2, Blood 18 mmol/L (21-32); Chloride, Blood 127 mmol/L (98-108); Creatinine, Blood 0.42 mg/dL (0.40-1.00); Globulin, Blood 1.9 g/dL (2.2-4.0); Glomerular Filtration Rate 103 (60-); Glucose, Blood 59 mg/dL (70-99); Potassium, Blood 2.1 mmol/L (3.5-5.5); Sodium, Blood 151 mmol/L (136-145); Total Protein, Blood 3.6 g/dL (6.4-8.2)
[2023-04-08 22:39] LABS: Calcium, Blood <5.0 mg/dL (8.5-10.1)
[2023-04-08 23:27] LABS: Percent Saturation 12.6 % (15.0-50.0)
[2023-04-08 23:31] LABS: Influenza A, PCR NEGATIVE (NEGATIVE); Influenza B, PCR NEGATIVE (NEGATIVE); Resp Syncytial Virus, PCR NEGATIVE (NEGATIVE)
[2023-04-08 23:32] LABS: Magnesium, Blood 0.6 mg/dL (1.6-2.4)
[2023-04-08 23:35] LABS: SARS-Cov-2 (COVID-19) PCR, MMC POSITIVE (NEGATIVE)
[2023-04-09] VITALS (7 sets, daily range): BP systolic 123–151; BP diastolic 71–92
[2023-04-09 04:12] LABS: Base Excess Venous 2.8 mmol/L; Bicarbonate Venous 25.6 mmol/L (24.0-30.0); PCO2 Venous 60.6 mmHg (38-42); pH Blood Venous 7.29 (7.34-7.37)
[2023-04-09 05:08] LABS: BASOPHILS ABSOLUTE AUTO 0.05 K/mm3 (0.00-0.23); BASOPHILS PERCENT AUTO 1 % (0-2); EOSINOPHILS ABSOLUTE AUTO 0.04 K/mm3 (0.00-0.68); EOSINOPHILS PERCENT AUTO 1 % (0-6); Hematocrit 32.7 % (33.0-51.0); Hemoglobin 10.1 g/dL (11.5-16.0); IMMATURE GRAN ABSOLUTE AUTO 0.05 K/mm3 (0.00-0.10); IMMATURE GRAN PERCENT AUTO 1 % (0-1); LYMPHOCYTES ABSOLUTE AUTO 0.37 K/mm3 (0.84-5.20); LYMPHOCYTES PERCENT AUTO 5 % (21-46); MONOCYTES ABSOLUTE AUTO 0.86 K/mm3 (0.16-1.47); MONOCYTES PERCENT AUTO 11 % (4-13); Mean Corpuscular HGB 31.4 pg (26.0-34.0); Mean Corpuscular HGB Conc 30.9 g/dL (31.5-36.5); Mean Corpuscular Volume 102 fL (80-100); Mean Platelet Volume 10.1 fL (9.1-12.4); NEUTROPHILS ABSOLUTE AUTO 6.19 K/mm3 (1.96-9.15); NEUTROPHILS PERCENT AUTO 82 % (41-73); Platelet Count 224 K/mm3 (150-400); RDW Coefficient Variation 14.7 % (11.7-14.2); RDW Standard Deviation 55.3 fL (35.1-46.3); Red Blood Cell Count 3.22 M/mm3 (3.80-5.20); White Blood Cell Count 7.56 K/mm3 (4.00-11.30)
[2023-04-09 05:23] LABS: Prothrombin Time Results 10.5 Sec (9.7-11.5)
[2023-04-09 05:39] LABS: IMMATURE RETIC FRACTION 12.6 % (2.3-16.0); RETIC HGB EQUIVALENT 35.9 pg (28.20-36.60); RETICULOCYTE ABSOLUTE 0.0541 M/mm3 (0.0200-0.1100); RETICULOCYTE COUNT PERCENT 1.65 % (0.50-2.50)
[2023-04-09 06:20] LABS: Thyroid Stimulating Hormone 0.802 uIU/mL (0.360-4.800)
--- NOTE | 2023-04-09 06:44 | NUR ---
END OF SHIFT NOTE: PT ARRIVED TO PCU SOB AND TACHY. SHE WAS PUT ON BIPAP FROM [place] AND IS MAINTAINING SPO2 >90%. SHE IS A/OX4 AND COOPERATIVE WITH CARE. SHE IS SINUS IN THE LOW 100S. SHE HAS A PUREWICK IN PLACE DUE TO INCREASED WORK OF BREATHING ON EXERTION. A POWERGLIDE WAS PLACED AND DRAWS. LABS WERE DRAWN IN ER AND AGAIN THIS MORNING. THEY ARE BEING REDRAWN TO VERIFY CHANGES SEEN. MD NOTIFIED. POTASSIUM STOPPED UNITL LABS ARE VERIFIED. PT IS RESTING ON BIPAP WITH CALL LIGHT IN REACH.
[2023-04-09 07:01] LABS: Albumin, Blood 3.2 g/dL (3.4-5.0); Blood Urea Nitrogen 9 mg/dL (8-24); Bun/Creatinine Ratio 12.8 (12.0-20.0); CO2, Blood 29 mmol/L (21-32); Chloride, Blood 107 mmol/L (98-108); Glomerular Filtration Rate 91 (60-); Glucose, Blood 119 mg/dL (70-99); Phosphorus, Blood 3.4 mg/dL (2.5-4.9)
[2023-04-09 07:02] LABS: Anion Gap 4 mmol/L (6-16)
[2023-04-09 07:03] LABS: Sodium, Blood 140 mmol/L (136-145)
[2023-04-09 07:07] LABS: Calcium, Blood 9.2 mg/dL (8.5-10.1)
[2023-04-09 07:49] LABS: Calcium, Blood 8.9 mg/dL (8.5-10.1); Creatinine, Blood 0.67 mg/dL (0.40-1.00); Potassium, Blood 5.4 mmol/L (3.5-5.5)
--- NOTE | 2023-04-09 09:17 | NUR ---
AM NOTE: PATIENT ALERT AND ORIENTED. VERY PLEASENT AND COOPERATIVE WITH CARES. PERRLA, GLASSES AT BEDSIDE. MOVING ALL EXTREMITIES EQUALLY. BILATERAL ATLASSIAN ADMINISTRATOR STRENGTH. NO DEFICITS NOTED. ABLE TO HELP STAFF TURN IN BED. DENIES NUMBNESS/TINGLING. UPON SHIFT START PATIENT WEARING BIPAP 10/6 WITH 10L BLEED IN SATING LOW-MID 90'S. RESP RATE 30'S. LABORED/BELLY BREATHING WHEN TALKING AND MOVING AROUND IN BED. PATIENT REPORTS HAVING PRODUCTIVE COUGH RECENTLY. BASELINE PT WEARS 4-5L AT HOME. ABLE TO TAKE SMALL BREAK WEARING 7L HIGH FLOW WITH BREAKFAST. PATIENT NOW WEARING BIPAP, SLEEPING. RESP IN TO ASSES FOR BREATHING TREATMENTS. HOME MED REC DONE AND MD ORDONEZ AWARE. HOME INHALER ORDERD. TELE SHOWING SR/ST WITH HR 90-100'S. BP STABLE. DENIES CHEST PAIN/PRESSURE/PALPITATIONS. PPP. SCD'S IN PLACE. NO EDEMA NOTED. IV'S SALINE LOCKED AT THIS TIME. BOWEL TONES PRESENT. PUREWICK IN PLACE, URINE CLEAR/YELLOW. IV LASIX GIVEN BY PREVIOUS SHIFT WITH GOOD OUTPUT. POOR APPEATITE, EATING A FEW BITES OF BREAKFAST THIS AM. NO SWALLOWING ISSUES NOTED. SKIN OVERALL C/D/I. DENIES NEEDS AT THIS TIME. CALL LIGHT IN REACH. MD ORDONEZ BY THIS AM, THIS RN AT BEDSIDE FOR PROVIDER ROUNDING. MED REC COMPLETED AND COPY PLACED IN CHART. THIS RN SPOKE WITH DAUGHTER ÁNGEL THIS AM AND UPDATED. PLAN FOR ÁNGEL TO VISIT THIS AFTERNOON.
--- NOTE | 2023-04-09 12:18 | NUR ---
AFTERNOON UPDATE: PATIENT SLEPT MOST OF MORNING WITH BIPAP IN PLACE, WAKING UP FOR CARES AND TURNS. WORK OF BREATHING IMPROVED THIS AFTERNOON WITH RESP RATE IN THE 20'S. PATIENT CURRENTLY SITTING UP IN BED POST RESP TREATMENT EATING LUNCH WITH 6L HIGH FLOW NASAL CANNULA SATING LOW-MID 90'S. OCCASIONAL COUGH. DENIES PAIN. AFTERNOON VITALS STABLE WITH HR 90-100'S, BP 136/71 (90). CALL LIGHT IN REACH. ATTENDS CHANGED, FLOATING HIPS. DENIES NEEDS AT THIS TIME.
--- NOTE | 2023-04-09 15:47 | NUR ---
PATIENT DAUGHTER ÁNGEL AT BEDSIDE VISITING. THIS RN PROVIDED UPDATE. VITALS REMAIN STABLE. PATIENT CURRENTLY SATING 94% ON 7L HIGH FLOW NASAL CANNULA. DENIES NEEDS.
--- NOTE | 2023-04-09 18:57 | NUR ---
SHIFT SUMMARY: NO ACUTE CHANGES, SEE PREVIOUS NOTES. PATIENT REMAINS ALERT AND ORIENTED. NO CHANGES TO TELE. SATING MID 90'S ON 7L HIGH FLOW NASAL CANNULA THROUGHOUT DINNER. TRANSITIONED BACK TO BIPAP WITH 7L BLEED IN POST DINNER. DENIES PAIN. VITAL SIGNS REMAIN STABLE. CALL LIGHT IN REACH. PUREWICK REMAINS IN PLACE.
--- NOTE | 2023-04-10 00:13 | NUR ---
REPORT GIVEN TO BLANKA FOR HER TO ASSUME CARE OF PT AT THIS TIME. PT IS RESTING IN BED. CALL LIGHT WITHIN REACH.
[2023-04-10 03:51] VITALS: BP 153/73
[2023-04-10 04:09] LABS: Base Excess Venous 5.8 mmol/L; Bicarbonate Venous 28.8 mmol/L (24.0-30.0); PCO2 Venous 50.3 mmHg (38-42); pH Blood Venous 7.39 (7.34-7.37)
[2023-04-10 04:09] LABS: BASOPHILS PERCENT AUTO 0 % (0-2); EOSINOPHILS PERCENT AUTO 0 % (0-6); Hematocrit 32.8 % (33.0-51.0); Hemoglobin 10.1 g/dL (11.5-16.0); IMMATURE GRAN ABSOLUTE AUTO 0.02 K/mm3 (0.00-0.10); IMMATURE GRAN PERCENT AUTO 1 % (0-1); LYMPHOCYTES PERCENT AUTO 9 % (21-46); MONOCYTES ABSOLUTE AUTO 0.16 K/mm3 (0.16-1.47); MONOCYTES PERCENT AUTO 5 % (4-13); Mean Corpuscular HGB 31.1 pg (26.0-34.0); Mean Corpuscular HGB Conc 30.8 g/dL (31.5-36.5); Mean Corpuscular Volume 101 fL (80-100); Mean Platelet Volume 10.4 fL (9.1-12.4); NEUTROPHILS ABSOLUTE AUTO 3.04 K/mm3 (1.96-9.15); NEUTROPHILS PERCENT AUTO 86 % (41-73); Platelet Count 215 K/mm3 (150-400); RDW Coefficient Variation 14.5 % (11.7-14.2); RDW Standard Deviation 54.6 fL (35.1-46.3); Red Blood Cell Count 3.25 M/mm3 (3.80-5.20); White Blood Cell Count 3.52 K/mm3 (4.00-11.30)
[2023-04-10 04:29] LABS: Bun/Creatinine Ratio 25.9 (12.0-20.0); Calcium, Blood 9.5 mg/dL (8.5-10.1); Creatinine, Blood 0.58 mg/dL (0.40-1.00); Potassium, Blood 4.6 mmol/L (3.5-5.5)
--- NOTE | 2023-04-10 06:15 | NUR ---
END OF SHIFT NOTE: THIS RN RESUMED CARE OF THIS PT MIDSHIFT. PT HAS BEEN RESTING COMFORTABLY WITH SPO2 >90%. PER PT REQUEST BIPAP WAS TURNED OFF AND NC APPLIED. SPO2 REMAINED >90%. NO ACUTE CHANGES DURING MY SHIFT WITH HER. SHE HAS HER CALL LIGHT IN REACH AND CALLS APPROPRIATELY TO MAKE HER NEEDS KNOWN.
[2023-04-10 07:55] VITALS: BP 144/89
--- NOTE | 2023-04-10 09:01 | NUR ---
AM NOTE: PATIENT ALERT AND ORIENTED X4. PERRLA, WEARING GLASSES. DENIES NUMBNESS/TINGLING. ABLE TO HELP WITH TURNS IN BED. MOVING ALL EXTREMITIES WNL. TELE SHOWING SR/ST WITH PAC'S. HR 90-100'S. BP STABLE. DENIES CHEST PAIN/PRESSURE/PALPITATIONS. SCD'S IN PLACE. NO SIGNS OF EDEMA. IV ANX INFUSING THIS AM. ON 7L HIGH FLOW NASAL CANNULA THIS AM SATING 90-94%. WEARING BIPAP 14/6 WITH 10L BLEED IN WHEN SLEEPING. RESPIRATORY RATE 20-26. OCCASIONAL PRODUCTIVE COUGH. LUNGS SOUNDING CLEAR AND DIM THROUGHOUT. BREATHING SHALLOW AND POSITIONAL. PATIENT STATES HER BREATHING FEELS OVERALL IMPROVED. BOWEL TONES PRESENT. EATING WNL. DRINKING COFFEE THIS AM. PUREWICK IN PLACE, URINE CLEAR/YELLOW. DENIES ABDOMINAL PAIN/NAUSEA. SKIN REMAINS C/D/I. THIS RN PLACED CALL TO DAUGHTER ÁNGEL TO UPDATE. DR. ORDONEZ BY THIS AM, THIS RN AT BEDSIDE FOR PROVIDER ROUNDING. MEDICAL STATUS NO TELE. DENIES NEEDS.
[2023-04-10 11:07] VITALS: BP 140/90
[2023-04-10 15:17] VITALS: BP 154/89
--- NOTE | 2023-04-10 17:59 | NUR ---
SHIFT SUMMARY: NO ACUTE CHANGES. VITAL SIGNS REMAINS STABLE. MEDICAL STATUS NO TELE. REMAINS ON 6-7L HIGH FLOW NASAL CANNULA. BIPAP AT BEDSIDE FOR NOC/RESCUE. PATIENT UP TO RECLINER THIS SHIFT FOR MEALS AND COMFORT. USING BEDSIDE COMMODE WITH SBA AND FWW. EATING AND DRINKING WNL. CALL LIGHT IN REACH. IN TO VISIT PATIENT THIS SHIFT AND UPDATED BY THIS RN. DENIES NEEDS AT THIS TIME.
[2023-04-10 19:36] VITALS: BP 152/89
[2023-04-10 23:59] VITALS: BP 141/82
[2023-04-11 03:35] VITALS: BP 156/93
[2023-04-11 04:09] LABS: Bun/Creatinine Ratio 32.5 (12.0-20.0); Calcium, Blood 9.5 mg/dL (8.5-10.1); Creatinine, Blood 0.68 mg/dL (0.40-1.00); Potassium, Blood 4.2 mmol/L (3.5-5.5)
--- NOTE | 2023-04-11 05:15 | NUR ---
END OF SHIFT NOTE: NO ACUTE CHANGES T/O SHIFT. SEE ABOVE NOTES. PT A/OX4 RESTING COMFORTABLY WITH BIPAP ON. DENIES SOB AND PAIN. PT CALLS APPROPRIATELY TO MAKE NEEDS KNOW. CALL LIGHT IN REACH. VSS
[2023-04-11 07:52] VITALS: BP 164/79
[2023-04-11] MEDS ORDERED: IPRAT-ALBUT 0.5-3 ML INH (08:47)
[2023-04-11] MEDS ORDERED: Prednisone10 MG PO (08:51)
--- NOTE | 2023-04-11 10:55 | NUR ---
DISCHARGE this rn assumed care at 0700. vital signs stable. patient is alert and oriented x4. perrla. patient is able to make needs known and uses call light appropriately. patient reports no pain, shortness of breath at rest, or chest pain/pressure. see shift assessment for further detials. md coello in the room and discussed discharge. this rn went over discharge education, appointments and medications. patient verbalized understanding. medications called into [facility] on [address]. patient left on 6l nc with her . patient left with all belongings and in no distress.
== END 2023-04-11 10:24 | disposition home or self-care (01) | DRG 177 ==
LOC: ER 20:14 → PCU 04-09 01:38
PROVIDERS: Internal Medicine; Student in an Organized Health Care Education/Training Program; ADMIT Student in an Organized Health Care Education/Training Program
PROC: 30233N1 Transfusion of Nonautologous Red Blood Cells into Peripheral Vein, Percutaneous Approach (ICD-10-PCS; 2023-04-08)
PROC: 8E0ZXY6 Isolation (ICD-10-PCS; 2023-04-08)
PROC: XW033E5 Introduction of Remdesivir Anti-infective into Peripheral Vein, Percutaneous Approach, New Technology Group 5 (ICD-10-PCS; principal; 2023-04-09)
PROC: 5A09357 Assistance with Respiratory Ventilation, Less than 24 Consecutive Hours, Continuous Positive Airway Pressure (ICD-10-PCS; 2023-04-09)
PROC: 3E0333Z Introduction of Anti-inflammatory into Peripheral Vein, Percutaneous Approach (ICD-10-PCS; 2023-04-09)
DX: U07.1 COVID-19 (principal); J96.21 Acute and chronic respiratory failure with hypoxia; J96.22 Acute and chronic respiratory failure with hypercapnia; J44.1 Chronic obstructive pulmonary disease with (acute) exacerbation; I50.32 Chronic diastolic (congestive) heart failure; E87.0 Hyperosmolality and hypernatremia; E87.1 Hypo-osmolality and hyponatremia; D50.9 Iron deficiency anemia, unspecified; E87.6 Hypokalemia; E83.39 Other disorders of phosphorus metabolism; E83.42 Hypomagnesemia; I11.0 Hypertensive heart disease with heart failure; E03.9 Hypothyroidism, unspecified; G47.33 Obstructive sleep apnea (adult) (pediatric); K21.9 Gastro-esophageal reflux disease without esophagitis; F17.210 Nicotine dependence, cigarettes, uncomplicated; F10.21 Alcohol dependence, in remission; Z99.81 Dependence on supplemental oxygen; Z88.1 Allergy status to other antibiotic agents; Z88.2 Allergy status to sulfonamides; Z88.8 Allergy status to other drugs, medicaments and biological substances; Z79.51 Long term (current) use of inhaled steroids; Z79.890 Hormone replacement therapy; Z79.899 Other long term (current) drug therapy; Z99.89 Dependence on other enabling machines and devices
CPT/HCPCS: 0241U; 36415; 36430; 71045; 80048; 80053; 80069; 82330; 82607; 82728; 82746; 82803; 83540; 83550; 83615; 83735; 84100; 84145; 84443; 85025; 85045; 85610; 86850; 86900; 86901; 86923; 93005; 93010; 94640; 94660; 94664; 94762; 96365; 96366; 96368; 99285-25; A9270; J0248; J0456; J1100; J1750; J1940; J2930; J3475; J3480; J7030; J7050; J7120; J7512; P9016

== ENCOUNTER 2023-06-22 20:49 | Inpatient (IN) | payer MEDICARE, OTHER ==
[~2023-06-22] VITALS: Ht 144.8 cm; Wt 58.0 kg
[~2023-06-22 20:49] MED LIST changes: +IPRAT-ALBUT 0.5-3 ML INH; +Prednisone10 MG PO
[2023-06-22] MEDS ORDERED: Ipratropium Bromide INH 0.02% 0.5 mg/2.5ML Vial INH SCH (20:55)
[2023-06-22] MEDS ORDERED: Albuterol 2.5 MG/3 ML VIAL INH SCH (20:55)
[2023-06-22] MEDS ORDERED: MethylPREDNISolone Sod Succ 125 MG Vial IV ONE (21:00)
[2023-06-22 21:08] LABS: BASOPHILS ABSOLUTE AUTO 0.04 K/mm3 (0.00-0.23); BASOPHILS PERCENT AUTO 0 % (0-2); EOSINOPHILS ABSOLUTE AUTO 0.04 K/mm3 (0.00-0.68); EOSINOPHILS PERCENT AUTO 0 % (0-6); Hematocrit 34.9 % (33.0-51.0); Hemoglobin 11.1 g/dL (11.5-16.0); IMMATURE GRAN ABSOLUTE AUTO 0.08 K/mm3 (0.00-0.10); IMMATURE GRAN PERCENT AUTO 1 % (0-1); LYMPHOCYTES ABSOLUTE AUTO 1.35 K/mm3 (0.84-5.20); LYMPHOCYTES PERCENT AUTO 8 % (21-46); MONOCYTES PERCENT AUTO 11 % (4-13); Mean Corpuscular HGB 32.8 pg (26.0-34.0); Mean Corpuscular HGB Conc 31.8 g/dL (31.5-36.5); Mean Corpuscular Volume 103 fL (80-100); Mean Platelet Volume 9.9 fL (9.1-12.4); NEUTROPHILS ABSOLUTE AUTO 13.29 K/mm3 (1.96-9.15); NEUTROPHILS PERCENT AUTO 80 % (41-73); Platelet Count 224 K/mm3 (150-400); RDW Coefficient Variation 14.4 % (11.7-14.2); RDW Standard Deviation 54.8 fL (35.1-46.3); Red Blood Cell Count 3.38 M/mm3 (3.80-5.20)
[2023-06-22 21:11] LABS: pH Blood Arterial 7.31 (7.35-7.45)
[2023-06-22 21:12] LABS: PCO2 Arterial 56.6 mmHg (35-45); PO2 Arterial 76.1 mmHg (80-100)
[2023-06-22 21:29] LABS: Albumin, Blood 3.5 g/dL (3.4-5.0); Albumin/Globulin Ratio 1.1 (0.8-1.8); Bilirubin, Total 0.7 mg/dL (0.1-1.0); Bun/Creatinine Ratio 15.4 (12.0-20.0); Calcium, Blood 8.8 mg/dL (8.5-10.1); Creatinine, Blood 0.65 mg/dL (0.40-1.00); Globulin, Blood 3.3 g/dL (2.2-4.0); Potassium, Blood 4.3 mmol/L (3.5-5.5); Total Protein, Blood 6.8 g/dL (6.4-8.2)
[2023-06-22] MEDS ORDERED: Ampicillin Sod/Sulbactam Sod 1.5 GM in NS 100 ML IV ONE (21:55)
[2023-06-22] MEDS ORDERED: LevoFLOXacin 750 MG/D5W 150ML 150 ML IV ONE (21:55)
[2023-06-22] MEDS ORDERED: NS 1,000 ML IV SCH (22:05)
[2023-06-22] MEDS ORDERED: Ipratropium/Albuterol SulF 2.5-0.5MG/3 ML Amp INH PRN (22:25)
[2023-06-22] MEDS ORDERED: Ondansetron HCl 2 MG / ML 2ML Vial IV PRN (22:25)
[2023-06-22 22:54] LABS: International Normalized Ratio 1.06; Prothrombin Time Results 11.1 Sec (9.7-11.5)
[2023-06-22 23:00] LABS: Influenza A, PCR NEGATIVE (NEGATIVE); Influenza B, PCR NEGATIVE (NEGATIVE); Resp Syncytial Virus, PCR NEGATIVE (NEGATIVE); SARS-Cov-2 (COVID-19) PCR, MMC NEGATIVE (NEGATIVE)
[2023-06-22] MEDS ORDERED: Enoxaparin 40 MG/0.4 ML SYR SC SCH (23:00)
[2023-06-22] MEDS ORDERED: Insulin Glargine-Yfgn 100 Unit/mL 3 ML SYR SC SCH (23:00)
[2023-06-22] MEDS ORDERED: Tiotropium Bromide 2.5 MCG/ACT MIST INHAL (10 ACT/4 GM) INH SCH (23:35)
[2023-06-22] MEDS ORDERED: Mometasone/Formoterol MDI 200/5 mcg 13 GM INH SCH (23:35)
[2023-06-23] MEDS ORDERED: MethylPREDNISolone Sod Succ 125 MG Vial IV SCH
[2023-06-23 01:12] LABS: BASOPHILS ABSOLUTE AUTO 0.03 K/mm3 (0.00-0.23); BASOPHILS PERCENT AUTO 0 % (0-2); EOSINOPHILS PERCENT AUTO 0 % (0-6); Hematocrit 31.7 % (33.0-51.0); Hemoglobin 9.7 g/dL (11.5-16.0); IMMATURE GRAN ABSOLUTE AUTO 0.09 K/mm3 (0.00-0.10); IMMATURE GRAN PERCENT AUTO 1 % (0-1); LYMPHOCYTES ABSOLUTE AUTO 0.32 K/mm3 (0.84-5.20); LYMPHOCYTES PERCENT AUTO 2 % (21-46); MONOCYTES ABSOLUTE AUTO 0.81 K/mm3 (0.16-1.47); MONOCYTES PERCENT AUTO 5 % (4-13); Mean Corpuscular HGB 31.8 pg (26.0-34.0); Mean Corpuscular HGB Conc 30.6 g/dL (31.5-36.5); Mean Corpuscular Volume 104 fL (80-100); Mean Platelet Volume 9.7 fL (9.1-12.4); NEUTROPHILS PERCENT AUTO 92 % (41-73); Platelet Count 177 K/mm3 (150-400); RDW Coefficient Variation 14.4 % (11.7-14.2); RDW Standard Deviation 55.5 fL (35.1-46.3); Red Blood Cell Count 3.05 M/mm3 (3.80-5.20); White Blood Cell Count 16.15 K/mm3 (4.00-11.30)
[2023-06-23 01:40] LABS: Bilirubin, Total 0.6 mg/dL (0.1-1.0); Bun/Creatinine Ratio 19.1 (12.0-20.0); Calcium, Blood 7.6 mg/dL (8.5-10.1); Creatinine, Blood 0.63 mg/dL (0.40-1.00); Potassium, Blood 3.7 mmol/L (3.5-5.5)
[2023-06-23 03:35] VITALS: BP 110/65
--- NOTE | 2023-06-23 05:45 | NUR ---
PT ADMITTED FROM ED AT 2250. PT A&OX4, DENIES PAIN, ABLE TO EXPRESS NEEDS APPROPRIATELY. ON BIPAP 50%, DENIES SOB, BREATHING COMFORTABLY ON BIPAP. BASELINE HOME O2 = 6L. RESPIRATORY PANEL NEGATIVE. ON IV ABX. FLUID BOLUS GIVEN IN ED. TACHYCARDIA NOTED ON ARRIVAL WITH HR 110S, HR NOW 80S. BP STABL, AFEBRILE. PT RESTED WELL OVERNIGHT. REMAINS NPO. SURYA IVS W/O SITE COMPLICATION.
[2023-06-23] MEDS ORDERED: Albuterol HFA200 ACT/6.7 GM INH INH PRN (06:35)
--- NOTE | 2023-06-23 07:15 | NUR ---
ASSUMPTION OD CARE SUMMARY: ASSUMED CARE OF PT AND RECEIVED REPORT FROM PET HANDLER RN AT 0700. UPON INITIAL ASSESSMENT, PT ON BIPAP WITH RR AT 33 SATTING AT 97% AXO X 4. PLEASANT AND COOPERATIVE WITH STAFF. PT DENIES ANY CURRENT C/P. SOB WITH EXERTION TO BEDSIDE COMMODE. PT SKIN IS FAIR AND INTACT. LUNG SOUNDS DIMINISHED IN BILATERAL LOWER LOBES. FIO2 CHANGED FROM 50% TO 45% ON BIPAP, AND TOLERATED WELL. PT ABLE TO AMBULATE WITH STAND BY ASSIST. HAS ECHO SCHEDULED FOR TODAY, NPO AT THIS TIME. CALL LIGHT IN REACH ALL VSS. WILL CONTINUE TO PROVIDE CARE ORDERED AND ASKED BY PT.
[2023-06-23] MEDS ORDERED: Insulin Human Lispro 100 Units/ML 3ML Syringe SC SCH (07:30)
[2023-06-23 07:31] VITALS: BP 125/74
[2023-06-23] MEDS ORDERED: Sertraline HCl 100 MG Tab PO SCH (09:00)
[2023-06-23] MEDS ORDERED: AmLODIPine Besylate 5 MG Tab PO SCH (09:00)
[2023-06-23] MEDS ORDERED: Furosemide 10 MG/ML 4ML Vial IV SCH (09:00)
[2023-06-23 11:42] VITALS: BP 125/83
[2023-06-23 15:08] VITALS: BP 129/86
--- NOTE | 2023-06-23 17:00 | NUR ---
MET WITH MIKAL TO DISCUSS EVENTS LEADING UP TO THIS HOSPITAL ADMISSION. WE DISCUSSED HER COPD AND SHORTNESS OF BREATH. WE DISCUSSED CODE STATUS. SHE REPORTED AT THIS TIME SHE WOULD LIKE TO REMAIN A FULL CODE. WE SPOKE ABOUT BECOMING A DNR AND CLARIFIED THAT WE WOULD CONTINUE TO PROVIDE CURATIVE TREATMENT UP UNTIL THE POINT OF HER HEART STOPPING. SHE WOULD WANT CPR AND TO BE INTUBATED IF THAT HAPPEND.
--- NOTE | 2023-06-23 17:24 | NUR ---
PCU SHIFT SUMMARY: ASSUMED CARE OF PT AT 0700 AFTER REPORT FROM NOC SHIFT RN. UPON INITIAL ASSESSMENT, PT ON BIPAP AT 50% FIO2 /6 SATTING AT 97%. AXO X 4. LUNG SOUNDS DIMINISHED, DENIED ANY C/P AND REPORTED EXERTIONAL SOB WHEN AMBULATING TO BEDSIDE COMMODE. DENIED ANY PAIN. NO NEUROLOGICAL ABNORMALITIES. THROUGHOUT THE DAY, PT WAS TRIALED OFF OF BIPAP IN WHICH IT TOOK 2 ATTEMPTS TO GET HER SETTLED ON 6L N/C IN WHICH SHE CURRENTLY REMAINS ON. SATS AT 93-95% PT WAS NPO THROUGHOUT THE DAY DUE TO BIPAP BUT WAS ABLE TO EAT DINNER AFTER TITRATING TO N/C. PT UP WITH ASSISTANCE MULTIPLE TIMES TO BEDSIDE COMMODE THROUGHOUT THE SHIFT. REMAINS HEMODYNAICALLY STABLE AT THIS TIME. PT HAS REMAINED POLITE AND COOPERATIVE WITH STAFF.
[2023-06-23 19:51] VITALS: BP 123/72
[2023-06-23] MEDS ORDERED: Montelukast Sodium 10 MG Tab PO SCH (21:00)
[2023-06-23] MEDS ORDERED: LevoFLOXacin 750 MG/D5W 150ML 150 ML IV SCH (21:00)
[2023-06-24 00:12] VITALS: BP 142/76
[2023-06-24 04:12] VITALS: BP 147/87
[2023-06-24 04:32] LABS: BASOPHILS ABSOLUTE AUTO 0.01 K/mm3 (0.00-0.23); BASOPHILS PERCENT AUTO 0 % (0-2); EOSINOPHILS PERCENT AUTO 0 % (0-6); Hematocrit 31.5 % (33.0-51.0); Hemoglobin 9.9 g/dL (11.5-16.0); IMMATURE GRAN ABSOLUTE AUTO 0.07 K/mm3 (0.00-0.10); IMMATURE GRAN PERCENT AUTO 1 % (0-1); LYMPHOCYTES ABSOLUTE AUTO 0.37 K/mm3 (0.84-5.20); LYMPHOCYTES PERCENT AUTO 3 % (21-46); MONOCYTES ABSOLUTE AUTO 0.59 K/mm3 (0.16-1.47); MONOCYTES PERCENT AUTO 5 % (4-13); Mean Corpuscular HGB 32.1 pg (26.0-34.0); Mean Corpuscular HGB Conc 31.4 g/dL (31.5-36.5); Mean Corpuscular Volume 102 fL (80-100); Mean Platelet Volume 10.8 fL (9.1-12.4); NEUTROPHILS ABSOLUTE AUTO 11.87 K/mm3 (1.96-9.15); NEUTROPHILS PERCENT AUTO 92 % (41-73); Platelet Count 161 K/mm3 (150-400); RDW Coefficient Variation 14.1 % (11.7-14.2); RDW Standard Deviation 53.3 fL (35.1-46.3); Red Blood Cell Count 3.08 M/mm3 (3.80-5.20); White Blood Cell Count 12.91 K/mm3 (4.00-11.30)
[2023-06-24 04:57] LABS: Albumin, Blood 3.1 g/dL (3.4-5.0); Albumin/Globulin Ratio 0.9 (0.8-1.8); Bilirubin, Total 0.3 mg/dL (0.1-1.0); Bun/Creatinine Ratio 27.4 (12.0-20.0); Calcium, Blood 8.4 mg/dL (8.5-10.1); Creatinine, Blood 0.69 mg/dL (0.40-1.00); Globulin, Blood 3.5 g/dL (2.2-4.0); Potassium, Blood 4.2 mmol/L (3.5-5.5); Total Protein, Blood 6.6 g/dL (6.4-8.2)
--- NOTE | 2023-06-24 05:02 | NUR ---
SHIFT SUMMARY ASSUMED CARE OF PT AT 1900 FROM DAY SHIFT RN. PT A&OX4, COOPERATIVE, AND ABLE TO EXPRESS NEEDS APPROPRIATELY. NONLABORED BREATHING ON BIPAP FIO2 40%, LUNG SOUNDS DIMINISHED. PT DENIES DYSPNEA. REFUSED BREAK FROM BIPAP OVERNIGHT. REMAINS HEMODYNAMICALLY STABLE THROUGHOUT THIS SHIFT. NO ACUTE EVENTS OVERNIGHT.
[2023-06-24] MEDS ORDERED: Levothyroxine Sodium 0.175 MG TAB PO SCH (06:00)
--- NOTE | 2023-06-24 07:20 | NUR ---
ASSUMPTION OF CARE: ASSUMED CARE OF PT AT 0700 AFTER REPORT FROM NOC SHIFT RN, UPON INITIAL ASSESSMENT IN ROOM PT AXO X [address] 40% FIO2 94%. PT HAS REMAINED COMPLIANT WITH BIPAP AND IS TOLERTATING BIPAP BREKAS FOR MEALS IN WHICH SHE USES 6L N/C. PT DENIES ANY CHEST PAIN HR 80S BUT REPORTS SOB WITH EXERTION. PT IS STAND BY ASSIST WITH BEDSIDE COMMODE. PT HAS GENERALIZED WEAKNESS ON TRANSFER. PT DENIES ANY CURRENT NEEDS AND REMAINS RESTING COMFORTABLY IN ROOM.
[2023-06-24 07:34] VITALS: BP 157/86
[2023-06-24 11:34] VITALS: BP 151/79
[2023-06-24 15:19] VITALS: BP 144/87
--- NOTE | 2023-06-24 17:15 | NUR ---
PCU DAY SHIFT SUMMARY: ASSUMED CARE OF PT AT 0700 AFTER REPORT FROM NOC RN. THROUGHOUT THE DAY PT REMAINED HEMODYNAMICALLY STABLE AND HAD NO CHANGE IN STATUS SINCE MORNING ASSESSMENT. PT REMAINED ON BIPAP AT 40% FIO2 WITH SMALL BREAKS ON 6L N/C FOR MEALS. MD WAS IN ROOM FOR EVAL IN AFTERNOON AND DISCUSSED POSSIBLE PLAN TO WEAN OFF BIPAP TOMORROW. PT O2 STABLE ON 6L N/C HOWEVER HR INCREASES TO LOW 100 SINUS TACH AND HAS DIFFICULTY RECOVERING WITH EXERTION. REMAINS STABLE AT THIS TIME WILL REPORT TO [facility] SHIFT RN.
[2023-06-24] MEDS ORDERED: Nicotine 14 MG PATCH TOP PRN (18:05)
[2023-06-24 19:40] VITALS: BP 140/81
[2023-06-25 00:43] VITALS: BP 131/74
[2023-06-25 03:57] LABS: BASOPHILS ABSOLUTE AUTO 0.02 K/mm3 (0.00-0.23); BASOPHILS PERCENT AUTO 0 % (0-2); EOSINOPHILS PERCENT AUTO 0 % (0-6); Hematocrit 31.4 % (33.0-51.0); Hemoglobin 10.1 g/dL (11.5-16.0); IMMATURE GRAN ABSOLUTE AUTO 0.12 K/mm3 (0.00-0.10); IMMATURE GRAN PERCENT AUTO 1 % (0-1); LYMPHOCYTES PERCENT AUTO 2 % (21-46); MONOCYTES ABSOLUTE AUTO 0.78 K/mm3 (0.16-1.47); MONOCYTES PERCENT AUTO 5 % (4-13); Mean Corpuscular HGB 32.5 pg (26.0-34.0); Mean Corpuscular HGB Conc 32.2 g/dL (31.5-36.5); Mean Corpuscular Volume 101 fL (80-100); Mean Platelet Volume 10.7 fL (9.1-12.4); NEUTROPHILS PERCENT AUTO 92 % (41-73); Platelet Count 230 K/mm3 (150-400); RDW Coefficient Variation 14.3 % (11.7-14.2); RDW Standard Deviation 52.7 fL (35.1-46.3); Red Blood Cell Count 3.11 M/mm3 (3.80-5.20); White Blood Cell Count 14.32 K/mm3 (4.00-11.30)
[2023-06-25 04:18] LABS: Bun/Creatinine Ratio 37.2 (12.0-20.0); Calcium, Blood 8.8 mg/dL (8.5-10.1); Creatinine, Blood 0.78 mg/dL (0.40-1.00); Potassium, Blood 3.3 mmol/L (3.5-5.5)
[2023-06-25 05:11] VITALS: BP 143/81
--- NOTE | 2023-06-25 06:47 | NUR ---
SHIFT SUMMARY PATIENT ALERT AND ORIENTED x4, ABLE TO MAKE NEEDS KNOWN TO STAFF. BP STABLE. PATIENT ON BIPAP DURING THE NIGHT WITH SPO2 >95%, PATIENT CONTINUES TO BE TACHYPNEIC WITH RR 20-25. PATIENT ABLE TO TOLERATE BEING OFF BIPAP ON 6L. BP STABLE, TELE READING SINUS RHYTHM-SINUS TACH DURING THE NIGHT. PATIENT ABLE TO STAND AND PIVOT TO BEDSIDE COMMODE. NO OTHER CHANGES DURING THE NIGHT, WILL REPORT TO DAY SHIFT RN.
[2023-06-25 08:22] VITALS: BP 143/86
[2023-06-25] MEDS ORDERED: Fluticasone 0.05% Nasal Spray SCH (09:00)
[2023-06-25] MEDS ORDERED: Melatonin 3 MG Tab PO PRN (09:10)
[2023-06-25] MEDS ORDERED: Potassium Chloride 20 MEQ/15 ML UDC PO ONE (09:20)
[2023-06-25 09:58] LABS: Magnesium, Blood 1.4 mg/dL (1.6-2.4); Phosphorus, Blood 3.3 mg/dL (2.5-4.9)
[2023-06-25] MEDS ORDERED: Sennosides 8.6 MG Tab PO SCH (10:00)
[2023-06-25] MEDS ORDERED: Docusate Sodium 100 MG Cap PO SCH (10:00)
[2023-06-25 11:19] VITALS: BP 136/81
[2023-06-25 15:08] VITALS: BP 141/83
--- NOTE | 2023-06-25 17:03 | NUR ---
PCU DAY SHIFT SUMMARY: RECEIVED REPORT FROM NOC SHIFT RN AT [facility] AT 0700. UPON INITIAL ASSESSMENT INTO ROOM PT SLEEPING BUT AROUSABLE TO THIS RN PRESENCE. PT AXO X 4 WEARING BIPAP AT 40% O2 STABLE AT 98%. PT DENIED C/P BUT ADMITTED TO SOB WITH EXERTION. PT ABLE TO TRANSFER WITH 1 PERSON ASSIST. PT REMAINED HEMODYANCIALLY STABLE THROUGHOUT THE DAY WITH NO ACUTE CHANGES TO CONDITION. RT CAME TO BEDSIDE FOR BRETAHING TREATMENTS AND SET PT BACK ON HER HOME TRILOGY. AFTER THIS, SHE REMAINED ON 6L N/C FOR THE REST OF THE SHIFT WITH O2 STABLE AT 96%. PT HAD MULTIPLE FAMILY MEMEBER VISITS TRHOGHOUT THE DAY AND CONTINUED TO BE POLITE AND COOPERATIVE WITH STAFF. CONTINUES TO BE DYSPENIC WITH TRANSFER TO BEDSIDE COMMODE WTH SATS DROPPING TO 88% BUT IS ABLE TO REBOUND BACK TO 96% AFTER RESTING ON THE EDGE OF THE BED. THIS RN WILL CONTINUE TO PROVIDE CARE ORDERED AND REQUESTED UNTIL REPORT TO NOC SHIFT RN.
[2023-06-25 20:08] VITALS: BP 128/77
[2023-06-25] MEDS ORDERED: Magnesium Sulf 2 GM/Water 50ML 50 ML IV ONE (20:10)
[2023-06-26] VITALS (7 sets, daily range): BP systolic 111–149; BP diastolic 75–87
[2023-06-26 03:36] LABS: BASOPHILS ABSOLUTE AUTO 0.01 K/mm3 (0.00-0.23); BASOPHILS PERCENT AUTO 0 % (0-2); EOSINOPHILS PERCENT AUTO 0 % (0-6); Hematocrit 32.5 % (33.0-51.0); Hemoglobin 10.4 g/dL (11.5-16.0); IMMATURE GRAN ABSOLUTE AUTO 0.13 K/mm3 (0.00-0.10); IMMATURE GRAN PERCENT AUTO 1 % (0-1); LYMPHOCYTES ABSOLUTE AUTO 0.39 K/mm3 (0.84-5.20); LYMPHOCYTES PERCENT AUTO 3 % (21-46); MONOCYTES ABSOLUTE AUTO 0.87 K/mm3 (0.16-1.47); MONOCYTES PERCENT AUTO 6 % (4-13); Mean Corpuscular HGB 32.2 pg (26.0-34.0); Mean Corpuscular Volume 101 fL (80-100); Mean Platelet Volume 10.1 fL (9.1-12.4); NEUTROPHILS ABSOLUTE AUTO 12.12 K/mm3 (1.96-9.15); NEUTROPHILS PERCENT AUTO 90 % (41-73); Platelet Count 241 K/mm3 (150-400); RDW Coefficient Variation 14.3 % (11.7-14.2); RDW Standard Deviation 52.5 fL (35.1-46.3); Red Blood Cell Count 3.23 M/mm3 (3.80-5.20); White Blood Cell Count 13.52 K/mm3 (4.00-11.30)
[2023-06-26 03:50] LABS: Albumin, Blood 3.2 g/dL (3.4-5.0); Anion Gap 9 mmol/L (3-11); Blood Urea Nitrogen 33 mg/dL (8-24); Bun/Creatinine Ratio 44.1 (12.0-20.0); CO2, Blood 32 mmol/L (21-32); Chloride, Blood 104 mmol/L (98-108); Creatinine, Blood 0.75 mg/dL (0.40-1.00); Glomerular Filtration Rate 83 (60-); Glucose, Blood 115 mg/dL (70-99); Magnesium, Blood 2.6 mg/dL (1.6-2.4); Phosphorus, Blood 3.9 mg/dL (2.5-4.9); Potassium, Blood 3.7 mmol/L (3.5-5.5); Sodium, Blood 141 mmol/L (136-145)
--- NOTE | 2023-06-26 06:10 | NUR ---
SHIFT SUMMARY PATIENT ALERT AND ORIENTED x4, ABLE TO MAKE NEEDS KNOWN TO STAFF. BP STABLE. TELE READING SR-ST. PATIENT WEARING HOME TRILOGY FOR MOST OF SHIFT, WILL WEAR BASELINE O2 WHILE GETTING UP TO BEDSIDE COMMODE. PATIENT CONTINUES TO BE TACHYPNEIC DURING THE NIGHT. NO OTHER SIGNIFICANT CHANGES, WILL REPORT TO DAY SHIFT RN.
[2023-06-26] MEDS ORDERED: Furosemide 20 MG Tab PO SCH (09:00)
--- NOTE | 2023-06-26 17:01 | NUR ---
SHIFT SUMMARY: PT REMAINS ALERT AND ORIENTED X4, ABLE TO FOLLOW COMMANDS AND MAKE NEEDS KNOWN. STRENGTH EQUAL BILATERALLY. BP AND HR STABLE. AFEBRILE. SPO2 >96% ON BASELINE 6L NC. LUNG SOUNDS DIM IN BASES. HOME TRILOGY AT BEDSIDE. PT SOB WITH ACTIVITY. PULSES STRONG AND EQUAL THROUGHOUT. ABD SOFT NON TENDER BOWEL SOUNDS +. SBA TO AND FROM BSC. NO BM THIS SHIFT. PT POSSIBLE DISCHARGE TOMORROW. BED IN LOW, CALL LIGHT IN REACH, WILL REPORT TO ONCOMING RN.
[2023-06-26] MEDS ORDERED: MethylPREDNISolone Sod Succ 125 MG Vial IV SCH (21:00)
[2023-06-27 02:37] VITALS: BP 145/86
[2023-06-27 03:01] VITALS: BP 136/78
--- NOTE | 2023-06-27 03:25 | NUR ---
TRANSFER FROM [facility] 04 @ 0250. PT ARRIVED VIA BED WITH ALL BELONGINGS.
[2023-06-27] MEDS ORDERED: Polyethylene Glycol 3350 17 gm PO PRN (03:30)
[2023-06-27 05:16] LABS: BASOPHILS ABSOLUTE AUTO 0.02 K/mm3 (0.00-0.23); BASOPHILS PERCENT AUTO 0 % (0-2); EOSINOPHILS PERCENT AUTO 0 % (0-6); Hematocrit 35.1 % (33.0-51.0); Hemoglobin 11.3 g/dL (11.5-16.0); IMMATURE GRAN ABSOLUTE AUTO 0.13 K/mm3 (0.00-0.10); IMMATURE GRAN PERCENT AUTO 1 % (0-1); LYMPHOCYTES ABSOLUTE AUTO 0.43 K/mm3 (0.84-5.20); LYMPHOCYTES PERCENT AUTO 3 % (21-46); MONOCYTES ABSOLUTE AUTO 0.77 K/mm3 (0.16-1.47); MONOCYTES PERCENT AUTO 6 % (4-13); Mean Corpuscular HGB 32.2 pg (26.0-34.0); Mean Corpuscular HGB Conc 32.2 g/dL (31.5-36.5); Mean Corpuscular Volume 100 fL (80-100); Mean Platelet Volume 10.2 fL (9.1-12.4); NEUTROPHILS ABSOLUTE AUTO 12.05 K/mm3 (1.96-9.15); NEUTROPHILS PERCENT AUTO 90 % (41-73); Platelet Count 243 K/mm3 (150-400); RDW Coefficient Variation 14.1 % (11.7-14.2); RDW Standard Deviation 51.6 fL (35.1-46.3); Red Blood Cell Count 3.51 M/mm3 (3.80-5.20)
[2023-06-27 06:00] LABS: Bun/Creatinine Ratio 45.5 (12.0-20.0); Calcium, Blood 9.6 mg/dL (8.5-10.1); Creatinine, Blood 0.7 mg/dL (0.40-1.00)
--- NOTE | 2023-06-27 06:23 | NUR ---
SHIFT SUMMARY NOC PCU TRANSFER. PT A/O X 4. PLEASANT AND COOPERATIVE WITH CARE. VSS. PT ON O2 5-6L/NC WHICH IS BASELINE, MAINTAINING SPO2 > 90& ON CONTINOUS BIOX. PT 1PA TO BSC/CONT. REPORTED FEELING CONSTIPATED AND REQUESTED MIRALAX, SO ORDER OBTAINED AND PT REQUESTS IT WITH AM RX. ON TELE RUNNING SINUS RHYTHM IN 60'S. PT IS POSSIBLE DISCHARGE TODAY. PT CURRENTLY RESTING WITH BED IN LOWEST POSITION, AND CALL LIGHT WITHIN REACH.
[2023-06-27 08:22] VITALS: BP 180/84
[2023-06-27] MEDS ORDERED: PredniSONE 20 MG Tab PO SCH (14:00)
[2023-06-27 16:24] VITALS: BP 127/56
--- NOTE | 2023-06-27 18:29 | NUR ---
SHIFT SUMMARY: PT A&O X4. PLEASANT AND COOPERATIVE WITH CARE. PT STATED THIS AM SHE FELT NAUSEOUS BUT DENIED ZOFRAN. LUNGS CLEAR AT THIS TIME. PT STAND BY ASSIST TO BSC. WORKED WITH PHYSICAL THERAPY THIS SHIFT. RECOMMENDING HOME HEALTH. PREDNISE CHANGED TO PO; TOLERATING WELL. PT C/O SORES IN MOUTH. SMALL WHITE BUMPS OF THRUSH NOTED ON RIGHT AND LEFT CHEEK. CALL LIGHT IN REACH. BED IN LOWEST POSITION.
[2023-06-27 20:06] VITALS: BP 132/65
[2023-06-27] MEDS ORDERED: Clotrimazole 10 MG Troche MT SCH (21:00)
[2023-06-28 03:47] VITALS: BP 150/79
[2023-06-28 05:12] LABS: BASOPHILS ABSOLUTE AUTO 0.02 K/mm3 (0.00-0.23); BASOPHILS PERCENT AUTO 0 % (0-2); EOSINOPHILS PERCENT AUTO 0 % (0-6); Hematocrit 34.2 % (33.0-51.0); Hemoglobin 11.1 g/dL (11.5-16.0); IMMATURE GRAN ABSOLUTE AUTO 0.12 K/mm3 (0.00-0.10); IMMATURE GRAN PERCENT AUTO 1 % (0-1); LYMPHOCYTES ABSOLUTE AUTO 0.74 K/mm3 (0.84-5.20); LYMPHOCYTES PERCENT AUTO 6 % (21-46); MONOCYTES ABSOLUTE AUTO 1.46 K/mm3 (0.16-1.47); MONOCYTES PERCENT AUTO 11 % (4-13); Mean Corpuscular HGB 32.2 pg (26.0-34.0); Mean Corpuscular HGB Conc 32.5 g/dL (31.5-36.5); Mean Corpuscular Volume 99 fL (80-100); Mean Platelet Volume 10.3 fL (9.1-12.4); NEUTROPHILS PERCENT AUTO 82 % (41-73); Platelet Count 256 K/mm3 (150-400); RDW Coefficient Variation 14.1 % (11.7-14.2); RDW Standard Deviation 51.5 fL (35.1-46.3); Red Blood Cell Count 3.45 M/mm3 (3.80-5.20); White Blood Cell Count 13.24 K/mm3 (4.00-11.30)
[2023-06-28 05:38] LABS: Bun/Creatinine Ratio 39.4 (12.0-20.0); Calcium, Blood 9.6 mg/dL (8.5-10.1); Creatinine, Blood 0.84 mg/dL (0.40-1.00); Potassium, Blood 3.6 mmol/L (3.5-5.5)
--- NOTE | 2023-06-28 06:35 | NUR ---
SHIFT SUMMARY: Pt admitted for PNA, respiratory failure and is a full code. Is alert and able to make needs known. ADLs have been SBA. denies pain or discomfort when asked. Iv to right AC is patent with dressing that is CDI. Phu reports sinus at 72. On 6 lpm via nc while awake and a bleed in with a trilogy while asleep.
[2023-06-28 08:11] VITALS: BP 151/82
[2023-06-28] MEDS ORDERED: CLOT10 MT (13:21)
[2023-06-28] MEDS ORDERED: Colace100 MG PO (13:22)
[2023-06-28] MEDS ORDERED: LEVO750 PO (13:23)
[2023-06-28] MEDS ORDERED: MELA3 PO (13:24)
[2023-06-28] MEDS ORDERED: Nicoderm Cq1 EAC1 TOP (13:25)
[2023-06-28] MEDS ORDERED: MIRALAX17 GM PO (13:26)
[2023-06-28] MEDS ORDERED: PRED20 PO (13:27)
[2023-06-28] MEDS ORDERED: SENN187 PO (13:28)
--- NOTE | 2023-06-28 15:10 | NUR ---
PT D/C @1884 VIA WHEELCHAIR WITH . BROUGHT IN O2 TANK FOR TRANSPORT. TRANSPORTED ON 6L. IV REMOVED FROM [facility] W/O COMPLICATIONS. TELE SENT BACK. MEDICATIONS FAXED TO [facility]. NO QUESTIONS AT TIME OF DISCHARGE. PT SENT WITH ALL BELONGINGS.
== END 2023-06-28 14:43 | disposition home health service (06) | DRG 871 ==
LOC: ER 20:49 → PCU 22:10 → MEDS 06-27 02:50
PROVIDERS: Emergency Medicine; Internal Medicine; Student in an Organized Health Care Education/Training Program; ADMIT Internal Medicine
PROC: 5A09357 Assistance with Respiratory Ventilation, Less than 24 Consecutive Hours, Continuous Positive Airway Pressure (ICD-10-PCS; principal; 2023-06-22)
PROC: 4A033R1 Measurement of Arterial Saturation, Peripheral, Percutaneous Approach (ICD-10-PCS; 2023-06-22)
PROC: 3E03329 Introduction of Other Anti-infective into Peripheral Vein, Percutaneous Approach (ICD-10-PCS; 2023-06-22)
DX: A41.9 Sepsis, unspecified organism (principal); J18.9 Pneumonia, unspecified organism; J96.21 Acute and chronic respiratory failure with hypoxia; J96.22 Acute and chronic respiratory failure with hypercapnia; J44.1 Chronic obstructive pulmonary disease with (acute) exacerbation; J44.0 Chronic obstructive pulmonary disease with (acute) lower respiratory infection; E87.20 Acidosis, unspecified; G47.33 Obstructive sleep apnea (adult) (pediatric); I10 Essential (primary) hypertension; E03.9 Hypothyroidism, unspecified; F17.210 Nicotine dependence, cigarettes, uncomplicated; R73.9 Hyperglycemia, unspecified; R79.89 Other specified abnormal findings of blood chemistry; K59.09 Other constipation; E78.5 Hyperlipidemia, unspecified; E87.6 Hypokalemia; Z99.81 Dependence on supplemental oxygen; Z88.1 Allergy status to other antibiotic agents; Z88.2 Allergy status to sulfonamides; Z79.51 Long term (current) use of inhaled steroids; Z79.890 Hormone replacement therapy; Z79.899 Other long term (current) drug therapy; Z79.52 Long term (current) use of systemic steroids
CPT/HCPCS: 0241U; 36415; 36600; 71045; 80048; 80053; 80069; 82803; 82947; 83605; 83735; 83880; 84100; 84145; 84484; 85025; 85610; 87040; 93306; 94640; 94644; 94660; 94664; 94761; 94762; 96374; 96375; 97110; 97161; 97530; 99285-25; A9270; J0295; J1650; J1815; J1940; J1956; J2930; J3475; J7030; J7512

== ENCOUNTER 2023-08-30 11:08 | Inpatient (IN) | payer MEDICARE, OTHER ==
[~2023-08-30] VITALS: Ht 144.8 cm; Wt 55.4 kg
[~2023-08-30 11:08] MED LIST changes: +CLOT10 MT; +Colace100 MG PO; +DOXY100 PO; -IPRAT-ALBUT 0.5-3 ML INH; +IPRAT-ALBUT 0.5-3 ML NEB; +LEVO750 PO; +MELA3 PO; +MIRALAX17 GM PO; +Nicoderm Cq1 EAC1 TOP; +SENN187 PO
[2023-08-30 11:55] LABS: BASOPHILS ABSOLUTE AUTO 0.02 K/mm3 (0.00-0.23); BASOPHILS PERCENT AUTO 0 % (0-2); EOSINOPHILS ABSOLUTE AUTO 0.02 K/mm3 (0.00-0.68); EOSINOPHILS PERCENT AUTO 0 % (0-6); Hematocrit 37.3 % (33.0-51.0); Hemoglobin 11.6 g/dL (11.5-16.0); IMMATURE GRAN ABSOLUTE AUTO 0.05 K/mm3 (0.00-0.10); IMMATURE GRAN PERCENT AUTO 1 % (0-1); LYMPHOCYTES ABSOLUTE AUTO 0.96 K/mm3 (0.84-5.20); LYMPHOCYTES PERCENT AUTO 9 % (21-46); MONOCYTES ABSOLUTE AUTO 1.16 K/mm3 (0.16-1.47); MONOCYTES PERCENT AUTO 11 % (4-13); Mean Corpuscular HGB 31.6 pg (26.0-34.0); Mean Corpuscular HGB Conc 31.1 g/dL (31.5-36.5); Mean Corpuscular Volume 102 fL (80-100); Mean Platelet Volume 9.9 fL (9.1-12.4); NEUTROPHILS ABSOLUTE AUTO 8.35 K/mm3 (1.96-9.15); NEUTROPHILS PERCENT AUTO 79 % (41-73); Platelet Count 206 K/mm3 (150-400); RDW Coefficient Variation 13.4 % (11.7-14.2); RDW Standard Deviation 50.5 fL (35.1-46.3); Red Blood Cell Count 3.67 M/mm3 (3.80-5.20); White Blood Cell Count 10.56 K/mm3 (4.00-11.30)
[2023-08-30] MEDS ORDERED: MethylPREDNISolone Sod Succ 125 MG Vial IV ONE (11:55)
[2023-08-30] MEDS ORDERED: Albuterol 2.5 MG/3 ML VIAL INH SCH (11:55)
[2023-08-30 12:01] LABS: Base Excess Venous 5.8 mmol/L; Bicarbonate Venous 27.1 mmol/L (24.0-30.0); PCO2 Venous 73.1 mmHg (38-42); pH Blood Venous 7.26 (7.34-7.37)
[2023-08-30 12:26] LABS: Albumin, Blood 3.3 g/dL (3.4-5.0); Albumin/Globulin Ratio 0.8 (0.8-1.8); Bilirubin, Total 0.4 mg/dL (0.1-1.0); Calcium, Blood 9.5 mg/dL (8.5-10.1); Creatinine, Blood 0.59 mg/dL (0.40-1.00); Potassium, Blood 4.5 mmol/L (3.5-5.5); Total Protein, Blood 7.3 g/dL (6.4-8.2)
[2023-08-30 12:44] LABS: Influenza A, PCR NEGATIVE (NEGATIVE); Influenza B, PCR NEGATIVE (NEGATIVE); Resp Syncytial Virus, PCR NEGATIVE (NEGATIVE); SARS-Cov-2 (COVID-19) PCR, MMC NEGATIVE (NEGATIVE)
[2023-08-30] MEDS ORDERED: Acetaminophen 500 MG Tab PO PRN (14:40)
[2023-08-30] MEDS ORDERED: Polyethylene Glycol 3350 17 gm PO PRN (14:45)
[2023-08-30] MEDS ORDERED: Acetaminophen 325 MG TABLET PO PRN (14:45)
[2023-08-30] MEDS ORDERED: Ondansetron HCl 2 MG / ML 2ML Vial IV PRN (14:45)
[2023-08-30] MEDS ORDERED: MethylPREDNISolone Sod Succ 125 MG Vial IV SCH (16:00)
[2023-08-30 16:47] VITALS: BP 141/77
[2023-08-30] MEDS ORDERED: PROBIOTIC1 EA14 PO (17:33)
[2023-08-30] MEDS ORDERED: DULO30 (17:34)
[2023-08-30] MEDS ORDERED: OMEP20ER PO (17:34)
[2023-08-30] MEDS ORDERED: Cardura1 MG PO (17:34)
--- NOTE | 2023-08-30 18:57 | NUR ---
ADMISSION/SHIFT SUMMARY: PT IS A NEW ADMIT, ARRIVES FROM ER AT APPROX 1645. PT ARRIVES A&Ox4, ANSWERS QUESTIONS APPROPRIATELY, COOPERATIVE W/CARE. PT ASSISTED TO NEW BED VIA SLIDER SHEET, REPORTS AMBULATING W/FWW AT BASELINE, ALSO HAS A W/C NEEDED. PT HAS BEEN MAINTAINING O2 SATS >92% ON BASELINE 6 L/MIN VIA HI FLOW NC, DYSPNEA W/EXERTION BUT REPORTS IMPROVED SOB SINCE ADMISSION, BIPAP ON SB IN ROOM. PT HAS DENIED CP, SR W/OCCASIONAL PACs, RATE IN 90s. PT STATES THAT SHE DID HAVE N/V FOR A FEW DAYS BUT THOSE SYMPTOMS HAVE RESOLVED. PALLIATIVE CARE CONSULTATION CALLED IN PER ORDERS. PT RESTING QUIETLY IN ROOM W/CALL LIGHT IN REACH. WILL CONTINUE TO MONITOR AND TREAT ACCORDINGLY UNTIL CHANGE OF SHIFT.
[2023-08-30 19:29] VITALS: BP 140/76
[2023-08-30] MEDS ORDERED: Lactobacil 2-S.Thermo-Bifido 1 1 Cap PO SCH (21:00)
[2023-08-30 23:11] VITALS: BP 116/83
[2023-08-31 04:20] VITALS: BP 130/86
[2023-08-31 04:26] LABS: Bicarbonate Venous 26.7 mmol/L (24.0-30.0); PCO2 Venous 58.8 mmHg (38-42); pH Blood Venous 7.32 (7.34-7.37)
[2023-08-31 04:58] LABS: Hematocrit 37.3 % (33.0-51.0); Hemoglobin 11.3 g/dL (11.5-16.0); Mean Corpuscular HGB 30.7 pg (26.0-34.0); Mean Corpuscular HGB Conc 30.3 g/dL (31.5-36.5); Mean Corpuscular Volume 101 fL (80-100); Mean Platelet Volume 10.4 fL (9.1-12.4); Platelet Count 253 K/mm3 (150-400); RDW Coefficient Variation 13.2 % (11.7-14.2); RDW Standard Deviation 49.4 fL (35.1-46.3); Red Blood Cell Count 3.68 M/mm3 (3.80-5.20); White Blood Cell Count 10.48 K/mm3 (4.00-11.30)
[2023-08-31 05:31] LABS: Albumin, Blood 3.2 g/dL (3.4-5.0); Anion Gap 8 mmol/L (3-11); Blood Urea Nitrogen 19 mg/dL (8-24); Bun/Creatinine Ratio 34.7 (12.0-20.0); CO2, Blood 31 mmol/L (21-32); Calcium, Blood 9.5 mg/dL (8.5-10.1); Chloride, Blood 104 mmol/L (98-108); Creatinine, Blood 0.55 mg/dL (0.40-1.00); Glomerular Filtration Rate 96 (60-); Glucose, Blood 129 mg/dL (70-99); Magnesium, Blood 1.8 mg/dL (1.6-2.4); Phosphorus, Blood 3.7 mg/dL (2.5-4.9); Potassium, Blood 4.7 mmol/L (3.5-5.5); Sodium, Blood 138 mmol/L (136-145)
--- NOTE | 2023-08-31 05:45 | NUR ---
1915 Assumed care of patient, bedside report completed. Shift plan of care reviewed with pt and all questions answered. Pt slept well this shift, has remained pain free. Has used home does of O2 of 6lpm via NC and Trilogy overnight. Pt able to maintain O2 Sat with mild activity of up to BSC with 1 person assist, christin moise. Pt had declined PM dose of IV ABX Vibramycin due to pt reports prior gastic upset with this med. Pt also questions the order for antibiotics as she reports " told me I do not have pneumonia." Reported/consulted with on-call MD and pt, decision to report to oncoming shift. Please see full assessment for additional details. No further complaints or concerns at this time, will continue to monitor.
[2023-08-31 07:54] VITALS: BP 142/97
[2023-08-31] MEDS ORDERED: Cholecalciferol 1000 Unit Tablet (=25MCG) PO SCH (09:00)
[2023-08-31] MEDS ORDERED: Enoxaparin 40 MG/0.4 ML SYR SC SCH (09:00)
--- NOTE | 2023-08-31 10:13 | NUR ---
ASSUMPTION OF CARE THIS RN ASSUMED CARE OF PT AT 0700. PT A/OX4 WHEN SHE IS AWAKE, PT STATES THAT SHE IS TIRED AND REQUESTED TO STAY ON TRILOGY TO CONTINUE RESTING. PT ABLE TO EXPRESS NEEDS. PT DENIES CHEST PAIN/PRESSURE AT THIS TIME. PT STATED THAT SHE "FEELS BETTER" WHEN AKED HOW HER BREATHING IS DOING. PT CURRENTLY ON THE TRILOGY WITH 6L BLEED IN, HER BASELINE. PT ABLE TO TOLERATE PO MEDICATIONS. LUNG SOUNDS DIM THROUGHOUT. PT VSS THIS MORNING. PT SR IN THE 60'S.
--- NOTE | 2023-08-31 15:28 | NUR ---
TRANSFER UPDATE REPORT GIVEN TO MED FLOOR RN AT 1515. PT TRANSFERED AT 1525 VIA HOSPITAL BED AND ON 6L HF, WHICH IS PT'S BASELINE. BELONGINGS IN BAGS AND TRANSFERED WITH PT ALONG WITH CHART. TRILOGY MACHINE TRANSFERED UP AFTER PT BY RESP CARE STAFF. PT'S CONTACTED AND UPDATED OF TRANSFER AT 1528.
--- NOTE | 2023-08-31 15:44 | NUR ---
TRANSFER TO 337 PT TRANSFERED TO ROOM 337. 2RN SKIN CHECK COMPLETED WITH IAIN Pittman RN. NOTHING NOTABLE ASIDE FROM A FEW SMALL BRUISES ON HER BUE'S. PT UP TO BSC FOR BM. WATER AT BEDSIDE. CALL LIGHT IN REACH. PT DENIES OTHER NEEDS AT THIS TIME.
[2023-08-31 15:46] VITALS: BP 118/73
[2023-08-31] MEDS ORDERED: Ipratropium/Albuterol SulF 2.5-0.5MG/3 ML Amp INH SCH (17:50)
[2023-08-31] MEDS ORDERED: Mometasone/Formoterol MDI 200/5 mcg 13 GM INH SCH (17:50)
--- NOTE | 2023-08-31 17:50 | NUR ---
BREATHING TREATMENTS PATIENT ASKED ABOUT HER BREATHING TREATMENTS AND THAT SHE HAS NOT RECIEVED THEM TODAY. DR. LAST CALLED AND ASKED. HE STATED THE BD PROTOCOL IS IN PLACE AND TALK WITH RT ABOUT THE PATIENT NEEDS. SPOKE WITH YONI WHEATLEY, RT, WHO PLANS TO PLACE SOME ORDERS FOR THE PATIENT.
[2023-08-31] MEDS ORDERED: Albuterol 2.5 MG/3 ML VIAL INH PRN (17:55)
[2023-08-31 19:14] VITALS: BP 113/74
[2023-08-31] MEDS ORDERED: MethylPREDNISolone Sod Succ 125 MG Vial IV SCH (21:00)
[2023-08-31] MEDS ORDERED: Melatonin 5 MG Tablet PO PRN (23:55)
[2023-09-01 03:03] VITALS: BP 122/81
--- NOTE | 2023-09-01 04:59 | NUR ---
END OF SHIFT SUMMARY PT A&OX4, ANXIOUS BUT COOPERATIVE WITH CARE. SOB WITH MINIMAL EXERTION, DESAT TO 80S, SLOW TO RECOVER. MONITORED ON CONT PULSE OX. ON BASELINE 6L O2, BIPAP WITH O2 BLEED IN AT NIGHT. PT STATES OVERALL, SYMPTOMS IMPROVING FROM ADMIT. NO ACUTE EVENTS OVERNIGHT.
[2023-09-01 07:01] VITALS: BP 111/97
[2023-09-01] MEDS ORDERED: Azithromycin 250 MG Tab PO SCH (09:00)
--- NOTE | 2023-09-01 09:00 | NUR ---
Pt laying in bed awake a/ox4, pleasant and cooperative with care, follows commands well, lungs are dim t/o, resp even with mild laboring, becomes very dyspnic with any activity, currently on 6 liters 02 via n/c, no cough noted at this time, but reports occ cough, hrr, no edema noted, ppp+1, cap refill< 3 sec, vs stable, afebrile, piv to lac site is clear and patent, btx4, abd flat soft nontender, voids via bsc, pullups in place, skin c/w/d, maew, meli, call light in reach.
[2023-09-01] MEDS ORDERED: Furosemide 40 MG Tab PO SCH (09:45)
[2023-09-01] MEDS ORDERED: AmLODIPine Besylate 5 MG Tab PO SCH ×2 (09:45→09:51)
[2023-09-01] MEDS ORDERED: Levothyroxine Sodium 0.175 MG TAB PO SCH (09:50)
[2023-09-01] MEDS ORDERED: Omeprazole 20 MG CapCR PO SCH (09:50)
[2023-09-01] MEDS ORDERED: Sertraline HCl 100 MG Tab PO SCH (09:57)
[2023-09-01] MEDS ORDERED: DULoxetine HCL 60 MG Capsule DR PO SCH (10:00)
[2023-09-01] MEDS ORDERED: DULoxetine HCL 30 MG Cap DR PO SCH (10:50)
[2023-09-01 15:09] VITALS: BP 140/69
--- NOTE | 2023-09-01 17:04 | NUR ---
CODE STATUS CHANGED TO DNR S/P [facility] REVIEW WITH PT AND SPOUSE. PT'S DISEASE PROCCESS CONTINUES TO WORSEN. THIS IS PT'S THIRD ADMISSION IN TWO MONTHS. SPOUSE, EDWIGE REPORTS PT WILL START HAVING DIFFICULTY BREATHING THEN TURN HER OXYGEN CONCENTRATOR FROM 6L TO 8 OR 9L WITH VERY LITTLE IMPROVEMENT. EPISODES OF DYSPNEA DESPITE O2 INTERVENTION CONTINUE TO INCREASE IN FREQUENCY AND ACUITY. 6 MO AGO PT WAS SEWING AND SMALL CRAFT HOBBIES. EATING 2 MEDIUM MEALS/DAY. USING 4-6L O2 NC DURING THE DAY AND BIPAP AT [facility]. NOW, PT IS ONLY GETTING UP TO USE THE RESTROOM. EATING LESS THAN 50% OF MEALS. PT AND SPOUSE WOULD LIKE TO PURSUE HOSPICE ON DISCHARGE AND CHANGE FOCUS OF CARE TO COMFORT INSTEAD OF CURRATIVE. RECEIVED VERBAL ORDER FROM DR. MATTHEW FOR CODE STATUS CHANGE TO DNR. ORDER PLACED ACCORDINGLY. UPDATE PROVIDED TO PRIMARY RNKRISTIN AND ROSALIO HERNANDEZ.
--- NOTE | 2023-09-01 18:44 | NUR ---
pt had an uneventful day, up to chair for meals, no acute changes this shift. call light in reach.
[2023-09-01 20:07] VITALS: BP 127/71
[2023-09-01] MEDS ORDERED: Montelukast Sodium 10 MG Tab PO SCH (21:00)
[2023-09-01] MEDS ORDERED: Doxazosin Mesylate 2 MG Tab PO SCH (21:00)
--- NOTE | 2023-09-02 04:19 | NUR ---
SHIFT SUMMARY: AO&4 PLEASANT AND COOPERATIVE. 6LNC TO SUSTAIN O2 >90%, PT ENDORSES SOB W/ EXERTION. NO TELE DENIES CP/PRESSURE, RECEIVING LASIX DAYSHIFT. REGULAR DIET W/ BM 08/30. PT SBA TO BSC W/ LOVENOX VTE PROPHYLAXIS. TYLENOL ADMIN PRN FOR ADEQUATE COVERAGE OF MODERATE PAIN. MELATONIN ADMIN PER PT REQUEST.
[2023-09-02 04:21] VITALS: BP 117/81
[2023-09-02 07:32] VITALS: BP 142/84
[2023-09-02] MEDS ORDERED: Ascorbic Acid 500 MG Tab PO SCH (09:00)
[2023-09-02] MEDS ORDERED: Fluticasone 0.05% Nasal Spray SCH (09:00)
[2023-09-02] MEDS ORDERED: DULoxetine HCL 60 MG Capsule DR PO SCH (09:00)
[2023-09-02] MEDS ORDERED: Loratadine 10 MG Tab PO SCH (09:00)
[2023-09-02] MEDS ORDERED: Furosemide 40 MG Tab PO SCH (09:00)
[2023-09-02] MEDS ORDERED: Atorvastatin 10 MG Tab PO SCH (09:00)
[2023-09-02] MEDS ORDERED: Sertraline HCl 100 MG Tab PO SCH (09:00)
[2023-09-02] MEDS ORDERED: DULoxetine HCL 30 MG Cap DR PO SCH (09:00)
[2023-09-02] MEDS ORDERED: Morphine Sulfate 20 MG/1ML 1 ML Oral Syringe SL PRN (12:55)
--- NOTE | 2023-09-02 15:09 | NUR ---
SPOKE WITH PATIENT'S FAMILY REGUARDING THEIR CONCERNS WITH THE PATIENT GETTING MORPHINE. STATING THAT THE PATIENT'S SISTER AND MOTHER HAVE ADVERSE REACTIONS TO MORPHINE AND CONCERNED WITH THE PATIENT RECEIVING IT. PATIENT TOLERATED FIRST DOSE WELL; PATIENT VOICES "NO REAL DIFFERENCE" NO SIGNS OR SYMPTOMS OF DISTRESS WITH PATIENT. CALL MADE TO DR. MATTHEW TO GIVE HER AN UPDATE ON PATIENT AND FAMILY CONCERNS.
[2023-09-02 15:18] VITALS: BP 117/72
--- NOTE | 2023-09-02 16:25 | NUR ---
SHIFT SUMMARY: PT IS A&OX4/SBA TO THE BEDSIDE COMMODE. SHE IS PLEASANT AND COOPERATIVE WITH CARE. SHE UTILIZES 6 L OF NASAL CANNUAL O2 AND WITH BIPAP TO MAINTAIN O2 LEVELS GREATER THAN 90%. SHE HAS BEEN WEARING HER BIPAP MOST OF THE DAY DUE TO DYSPNEA. PATIENT DESATS IN THE 80'S WITHOUT O2 AND WILL DESAT WITH EXERTION. SHE WAS STARTED ON ROXANOL TO DAY AT 5MG AND HAS RECEIVED ONE DOSE SO FAR AND HAS TOLERATED WELL. SHE IS IN BED, CALL LIGHT WITHIN REACH, NO SIGNS OR SYMPTOMS OF DISTRESS, HER IS IT AT BEDSIDE, PLAN IS TO D/C 09/03/23 HOME ON HOSPICE. PLAN OF CARE ONGOING.
[2023-09-02 19:16] VITALS: BP 119/63
--- NOTE | 2023-09-03 04:08 | NUR ---
SHIFT SUMMARY NIKKI WAS ALERT AND FULLY ORIENTED ON ASSESSMENT. PT ON 6L O2 VIA NC WHILE AWAKE, AND HOME TRILOGY UNIT WITH 6L BLEED IN FOR SLEEP. PT BECOMES DYSPNEIC WITH MINIMAL EXERTION. PT CONTINUOUS BIOX DID NOT ALARM TONIGHT. NO NEW COMPLAINTS, NO NOTED CHANGES TO PT CONDITION. PT RESTING IN BED AT A LOW POSITION WITH CALL LIGHT IN REACH.
[2023-09-03 05:20] VITALS: BP 133/87
[2023-09-03 08:13] VITALS: BP 142/85
[2023-09-03] MEDS ORDERED: AmLODIPine Besylate 5 MG Tab PO SCH (09:00)
[2023-09-03] MEDS ORDERED: Furosemide 20 MG Tab PO SCH (09:00)
[2023-09-03] MEDS ORDERED: Morphine Sulfate 20 MG/1ML 1 ML Oral Syringe SL PRN (09:55)
[2023-09-03] MEDS ORDERED: MORP20L PO (11:16)
[2023-09-03] MEDS ORDERED: MELATONIN5 M3 PO (11:18)
[2023-09-03] MEDS ORDERED: ACET500 PO (11:19)
[2023-09-03] MEDS ORDERED: MIRALAX17 GM PO (11:19)
[2023-09-03] MEDS ORDERED: DECADRON4 M1 PO (11:28)
== END 2023-09-03 13:12 | disposition hospice, home (50) | DRG 189 ==
LOC: ER 11:08 → MEDS 15:24 → PCU 15:24 → MEDS 08-31 15:24 → ENPENDDIS 09-03 11:29 → MEDS 09-03 13:12
PROVIDERS: Emergency Medicine; Student in an Organized Health Care Education/Training Program; ADMIT Internal Medicine
PROC: 5A09357 Assistance with Respiratory Ventilation, Less than 24 Consecutive Hours, Continuous Positive Airway Pressure (ICD-10-PCS; principal; 2023-08-30)
DX: J96.21 Acute and chronic respiratory failure with hypoxia (principal); J44.1 Chronic obstructive pulmonary disease with (acute) exacerbation; J96.22 Acute and chronic respiratory failure with hypercapnia; I10 Essential (primary) hypertension; G47.33 Obstructive sleep apnea (adult) (pediatric); E03.9 Hypothyroidism, unspecified; F17.210 Nicotine dependence, cigarettes, uncomplicated; Z98.890 Other specified postprocedural states; Z99.89 Dependence on other enabling machines and devices; Z88.8 Allergy status to other drugs, medicaments and biological substances; Z88.2 Allergy status to sulfonamides; Z79.51 Long term (current) use of inhaled steroids; Z79.899 Other long term (current) drug therapy; Z79.890 Hormone replacement therapy
CPT/HCPCS: 0241U; 36415; 71046; 80053; 80069; 82803; 83735; 83880; 85025; 85027; 93005; 93010; 94640; 94644; 94660; 94664; 94762; 96374; 97110; 97162; 97530; 99285-25; A9270; J1650; J2919